=== PATIENT | female | born 2000 | race Caucasian/White ===

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

== ENCOUNTER → 2021-01-22 12:57 | Outpatient (CLI) | payer OTHER, SELFPAY ==
[2020-11-01 08:10] VITALS: BMI 40.1
[2021-01-22] MEDS: Methacholine Chloride 18 ml neb kit INHALATION (13:20)
--- NOTE | 2021-01-24 10:05 | BRONCHALL ---
Bronchoprovocation Challenge Bronchoprovocation Challenge Bronchoprovocation Challenge: INTRODUCTION: The patient is a 20-year-old female that presents for a methacholine challenge secondary to a diagnosis of shortness of breath. Respiratory therapy reported good patient effort and reproducible results. INTERPRETATION: Initial spirometry did not show any large airways obstructive ventilatory defect and preserved airflows throughout. The patient was then given progressively increasing doses of methacholine in a standardized fashion. At no point during testing did the patient's FEV1 drop to the threshold criteria that would be considered a positive test. IMPRESSION: Negative methacholine challenge.
== END ==
PROVIDERS: PCP Registered Nurse; Referring Provider Nurse Practitioner Acute Care; Visit Provider Nurse Practitioner Acute Care
DX: R06.00 Dyspnea, unspecified (principal)
CPT/HCPCS: 94070; 95070

== ENCOUNTER → 2021-02-14 20:00 | Outpatient (CLI) | payer OTHER, SELFPAY | PROVIDERS: PCP Registered Nurse; Visit Provider Internal Medicine Critical Care Medicine | DX: G47.10 Hypersomnia, unspecified (principal); R06.00 Dyspnea, unspecified; E66.01 Morbid (severe) obesity due to excess calories | CPT/HCPCS: 95810 ==

== ENCOUNTER 2021-05-27 07:46 | Observation (INO) | payer OTHER, SELFPAY ==
[2021-05-27 07:47] VITALS: BP 140/100; PULSE 122; RESP 18; TEMP 36.4; O2SAT 95; BMI 34.3
[2021-05-27] MEDS: Ondansetron 4 MG/2 ML Vial IV ×4 (08:12→21:55)
--- NOTE | 2021-05-27 08:17 | EDS_ITS ---
HPI History of Present Illness Chief Complaint: Nausea/Vomiting Informant: patient Narrative Narrative: 21-year-old female at 16 weeks gestation states that she is having severe morning sickness. Patient states that since about 7 weeks gestation this is been a regular occurrence. She states that her ELECTRICAL RESEARCH ENGINEER is in [place]. She states that [facility] does not do anything for her but give her IVs of medicine. She states that her ELECTRICAL RESEARCH ENGINEER states that she is not over morning sickness by 20 weeks they would look into other options. Patient states that she is currently being treated for UTI. She states that nothing seems to help her morning sickness. PFSH PFSH Medical History no medical history Home Medications albuterol sulfate 90 mcg/actuation aerosol inhaler 2 puff INHALATION Q6H PRN 10/02/20 [History Last Taken Unknown] Allergy/AdvReac Type Severity Reaction Status Date / Time No Known Allergies Allergy Verified 01/03/21 10:38 Surgical History no surgical history Social History (Updated 05/27/21 @ 08:[address] Bill Green, DO) current gender identity: female Smoking Status: Never smoker ROS ROS ED Constitutional Constitutional ED: Denies chills, fever(s) or weight loss Eyes Eyes: Denies change in vision or diplopia ENT ENT ED: Reports rhinorrhea and sore throat; Denies ear pain Cardiovascular Cardiovascular: Denies chest pain, orthopnea, palpitations or racing heartbeat Respiratory/Chest Respiratory/Chest: Reports cough; Denies dyspnea or orthopnea Gastrointestinal Gastrointestinal: Reports constipation, nausea and vomiting; Denies abdominal pain or diarrhea Genitourinary Genitourinary ED: Denies dysuria, hematuria or urinary frequency Musculoskeletal Musculoskeletal: Denies arthralgias or myalgias Integumentary Denies abscess or rash Neurologic Neurologic: Denies headache(s) or weakness Psychiatric Psychiatric: Denies anxiety, depression, suicidal ideation or suicidal thoughts Endocrine Endocrinology: Denies polydipsia, polyphagia or polyuria Allergic/Immunologic Allergic/Immunologic ED: Denies mouth swelling, tongue swelling or urticaria EXAM Physical Exam Const Vital Signs: 05/27/21 07:47 05/27/21 11:03 Temperature 97.5 F L Temperature Source Temporal Pulse Rate 122 H 108 H Respiratory Rate 18 16 Blood Pressure 140/100 H 142/118 H Blood Pressure Mean 113 126 Pulse Ox 95 98 Oxygen Delivery Method Room Air Room Air Positive well nourished, well developed and obese General Appearance ED: well developed Nutritional Appearance: obese HEENT Reports normocephalic, head/scalp atraumatic, TM's clear and moist mucous membranes Negative for trauma Tympanic Membrane ED: Yes TM's clear Eyes PERRL and EOMs intact bilaterally Neck no lymphadenopathy, supple and no JVD Resp normal respiratory effort and clear to auscultation bilaterally Cardio regular rate and no murmurs Rate: tachycardic GI normal to inspection, nondistended, normoactive bowel sounds and non-tender Palpation: soft Back/Spine no CVA tenderness and normal ROM Extremity normal to inspection General Extremety ED: Negative for edema General Extremity: Negative for edema Neuro oriented x3 and CN's II-XII intact bilaterally Sensorium / Orientation: alert Motor Exam: strength 5/5 throughout Psych mental status grossly normal Mood & Affect: Negative for depressed or tearful Skin no rashes or lesions noted and no wounds MDM MDM MDM Narrative Medical decision making narrative: White count nonspecifically elevated 11.2 with a hemoglobin of 16.4. Potassium low at 2.5. Magnesium 2.2. Elevation of transaminases with an ALT of 549 and AST of 158. Urinalysis demonstrates 25-50 white cells 1+ bacteria. This will be sent for culture the patient will receive a dose of Rocephin. Patient has received potassium IV, IV fluids, Reglan Zofran and Benadryl. After 6 hours the patient is still vomiting. Patient was discussed with Dr. Skelton whom the patient wishes to reduce with her ELECTRICAL RESEARCH ENGINEER. Dr. Skelton was agreeable to admit the patient. Lab Data Attestation: I reviewed the patient's lab results. Labs: Laboratory Results - last 24 hr 05/27/21 05/27/21 05/27/21 08:00 08:00 08:00 WBC 11.2 H RBC 5.72 H Hgb 16.4 H Hct 46.4 MCV 81.1 MCH 28.7 MCHC 35.3 RDW Std Deviation 35.0 L RDW Coeff of Neda 12.1 Plt Count 356 MPV 10.2 Immature Gran % (Auto) 0.400 Neut % (Auto) 84.1 H Lymph % (Auto) 9.4 L [place] % (Auto) 5.9 Eos % (Auto) 0.1 Baso % (Auto) 0.1 Absolute Neuts (auto) 9.4 H Absolute Lymphs (auto) 1.05 Nucleated RBC % 0 Sodium 135 L Potassium 2.5 L* Chloride 99 Carbon Dioxide 22.0 Anion Gap 14 BUN 9 Creatinine 0.80 Estim Creat Clear Calc 92.79 Est GFR (MDRD) Af Amer 118 Est GFR (MDRD) Non-Af 98 BUN/Creatinine Ratio 11.3 Glucose 137 H Calcium 10.1 Magnesium 2.2 Total Bilirubin 1.30 H AST 158 H ALT 549 H Alkaline Phosphatase 98 Total Protein 8.1 Albumin 3.4 Globulin 4.7 H Albumin/Globulin Ratio 0.7 L Urine Color Urine Clarity Urine pH Ur Specific [place] Urine Protein Urine Glucose (UA) Urine Ketones Urine Occult Blood Urine Nitrite Urine Bilirubin Urine Urobilinogen Ur Leukocyte Esterase Urine RBC Urine WBC Ur Squamous Epith Cells Other Crystals Urine Bacteria Urine Mucus 05/27/21 11:35 WBC RBC Hgb Hct MCV MCH MCHC RDW Std Deviation RDW Coeff of Neda Plt Count MPV Immature Gran % (Auto) Neut % (Auto) Lymph % (Auto) [place] % (Auto) Eos % (Auto) Baso % (Auto) Absolute Neuts (auto) Absolute Lymphs (auto) Nucleated RBC % Sodium Potassium Chloride Carbon Dioxide Anion Gap BUN Creatinine Estim Creat Clear Calc Est GFR (MDRD) Af Amer Est GFR (MDRD) Non-Af BUN/Creatinine Ratio Glucose Calcium Magnesium Total Bilirubin AST ALT Alkaline Phosphatase Total Protein Albumin Globulin Albumin/Globulin Ratio Urine Color Yellow Urine Clarity Sl. Cloudy Urine pH 6.5 Ur Specific [place] 1.015 Urine Protein 30 H Urine Glucose (UA) Normal Urine Ketones 150 A* Urine Occult Blood Negative Urine Nitrite Negative Urine Bilirubin 3 H Urine Urobilinogen 8 H Ur Leukocyte Esterase 500 H Urine RBC 0 SEEN Urine WBC 25-50 SEEN Ur Squamous Epith Cells 0-5 SEEN Other Crystals COMMEN Urine Bacteria 1+ Urine Mucus 0 SEEN EKG Initial EKG: Attestation: I personally reviewed and interpreted this EKG as follows: Comments: EKG demonstrates a sinus rhythm with PAC with a ventricular rate of 87 bpm. Discharge Plan Dx/Rx/DC Orders Clinical Impression: Hyperemesis gravidarum, Second trimester , Acute hypokalemia Disposition Disposition: Acute Care [facility]
[2021-05-27 08:29] LABS: Absolute Lymphocyte Count 1.05 X10^3/uL (0.83-4.51); Absolute Neutrophil Count 9.4 X10^3/uL (2.0-7.7); Basophil# 0.01 X10^3/uL; Basophil% 0.1 % (0-1); Eosinophil# 0.01 X10^3/uL; Eosinophils% 0.1 % (0-5); Hematocrit 46.4 % (37-47); Hemoglobin 16.4 g/dL (12.0-15.0); Lymphocyte # 1.05 X10^3/ul (0.83-4.51); Lymphocyte % 9.4 % (19-41); Mean Corp Hgb Conc 35.3 g/dL (32-36); Mean Corpuscular Hgb 28.7 pg (27.0-32.0); Mean Corpuscular Volume 81.1 fL (81-99); Mean Platelet Vol. 10.2 fl (6.2-12.0); Monocyte# 0.66 X10^3/uL; Monocyte% 5.9 % (0-10); NRBC Flagged by Analyzer 0 % (0-5); Neutrophil # 9.44 X10^3/uL (2.7-7.7); Neutrophil % 84.1 % (47-70); Platelet Count 356 K/mm3 (150-450); RBC Distribution Width CV 12.1 % (11.6-14.6); Red Blood Count 5.72 M/mm3 (4.2-5.4); White Blood Count 11.2 K/mm3 (4.4-11.0)
[2021-05-27] MEDS: Metoclopramide 10 MG/2 ML Vial IV (08:30)
[2021-05-27] MEDS: DiphenhydrAMINE 50 MG/ML Syringe IV (08:32)
[2021-05-27] MEDS: 0.9% Normal Saline 1,000 ML 1000 ML IV ×2 (08:33→12:18)
[2021-05-27 09:12] LABS: ALB/GLOB Ratio 0.7 RATIO (0.9-2.4); AST(SGOT) 158 U/L (15-37); Alanine Aminotransfer ALT/SGPT 549 U/L (13-56); Albumin, Serum 3.4 g/dL (3.2-5.0); Alkaline Phosphatase 98 U/L (45-117); Anion Gap 14 (5-15); BUN 9 mg/dL (7-18); BUN/Creat Ratio 11.3 RATIO (10-20); Calcium,Total 10.1 mg/dL (8.5-10.1); Chloride 99 mmol/L (98-107); EST Glomerular Filtration Rate 98 mL/min (>60); Est Glom Filt Rate - Afr Amer 118 mL/min (>60); Estimated Creatinine Clearance 92.79 ml/min; Globulin 4.7 g/dL (2.2-4.2); Glucose 137 mg/dL (74-106); Protein, Total 8.1 g/dL (6.4-8.2); Sodium Level 135 mmol/L (136-145)
[2021-05-27 09:15] LABS: Potassium 2.5 mmol/L (3.5-5.1)
--- NOTE | 2021-05-27 09:15 | ED.RN ---
lab called potassium level of 2.5. dr orta notified.
--- NOTE | 2021-05-27 09:30 | EKG12_ITS ---
Test Reason : Blood Pressure : / mmHG Vent. Rate : 087 BPM Atrial Rate : 087 BPM P-R Int : 136 ms QRS Dur : 096 ms QT Int : 382 ms P-R-T Axes : 036 073 000 degrees QTc Int : 459 ms Sinus rhythm with Premature supraventricular complexes T wave abnormality, consider inferior ischemia Abnormal ECG Confirmed by DONNA SCHAFER, LEILANI ([id number]), acquisition editor KESHAWN FIGUEROA ([id number]) on 05/29/2021 9:55:33 AM Referred By: JV Confirmed By:LEILANI THOMPSON MD
--- NOTE | 2021-05-27 09:35 | NURSING ---
NO OLD EKGS
[2021-05-27 10:07] LABS: Magnesium 2.2 mg/dL (1.6-2.6)
[2021-05-27] MEDS: Potassium Chloride 10mEq/100mL 10 MEQ/100 ML IV.SOLN. 100 MEQ IV BOLUS ×4 (10:14→17:38)
[2021-05-27 11:03] VITALS: BP 142/118; PULSE 108; RESP 16; O2SAT 98
[2021-05-27 11:42] LABS: Mucous, Urine 0 SEEN /hpf (<or=2+); Red Blood Cells-Urine 0 SEEN /hpf (0-5)
[2021-05-27 11:52] LABS: Color, Urine Yellow (Yellow); Glucose, Dipstick Normal (Normal); Leukocyte Esterase-Dipstick 500 /ul (Negative); Nitrite-Dipstick Negative (Negative); Occult Blood-Urine Negative /ul (Negative); Protein-Dipstick 30 mg/dl (Negative); Specific Gravity, Urine 1.015 (1.002-1.030); Urine Clarity Sl. Cloudy (Clear); Urine Urobilinogen 8 mg/dl (Normal); Urine pH 6.5 (5.0 - 8.0)
[2021-05-27 11:53] LABS: Urine Bilirubin Dipstick 3 mg/dL (Negative)
[2021-05-27 11:54] LABS: Ketone-Dipstick 150 mg/dl (Negative)
[2021-05-27 12:02] LABS: Bacteria 1+ /hpf (None Seen); Squamous Epithelial Cells - UA 0-5 SEEN /hpf (5-10); White Blood Cells 25-50 SEEN /hpf (0-5)
--- NOTE | 2021-05-27 14:18 | NURSING ---
MED SURG OBS MARCANTHONY HYPEREMESIS GRAVIDARUM
[2021-05-27 14:45] VITALS: BP 122/77; PULSE 97; RESP 20; TEMP 36.6; O2SAT 98
[2021-05-27 14:47] LABS: Hemoglobin A1c 5.1 % (3.8-5.6)
[2021-05-27] MEDS: Ceftriaxone 1 GM/50 ML BAG IV (14:49)
[2021-05-27 15:15] VITALS: BP 138/72; PULSE 95; RESP 18; TEMP 36.9; O2SAT 97; BMI 35.2
--- NOTE | 2021-05-27 15:15 | US_ITS ---
STUDY: ABDOMINAL ULTRASOUND - RIGHT UPPER QUADRANT REASON FOR VISIT: Female, 21 years old. Technologist Notes Other, ELEVATED LFT''S. HYPEREMESIS GRAVIDARIUM, PT IS 16 WEEKS , HAVE NOT BEEN ABLE TO KEEP ANYTHING DOWN WELL FOR 2 WEEKS. elevated lfts TECHNIQUE: Ultrasound evaluation of the right upper quadrant was performed with real-time and static george-scale imaging. TECHNICAL QUALITY: Adequate. COMPARISON: None. FINDINGS: Liver: There is increased echogenicity consistent with fatty infiltration. The bile ducts are within normal limits. There is hepatic color flow. The direction of portal flow is hepatopetal. There is no demonstrated mass lesion. Gallbladder: Normal distended gallbladder. The gallbladder wall measures 2.2 mm. There is a negative sonographic Bagley''s sign. There is no pericholecystic fluid. There is biliary sludge dependent within the gallbladder vs small gallstones. Common Bile Duct (C.B.D.): The common bile duct measures ( in mm): 4.6 Pancreas: Normal size of the head, body of the pancreas. There is normal echogenicity of the pancreas. There is no demonstrated pancreatic mass or cyst. Right Kidney: Normal size of the right kidney. The right kidney measures 11.4 cm. . Normal renal cortex. There is no demonstrated renal mass or cyst. There is no right hydronephrosis. Aorta: It is not visualized. There is too much overlying bowel gas. . US/Liver IMPRESSION: Fatty liver. There is biliary sludge dependent within the gallbladder vs small gallstones. Electronically Signed: Rodriguez Foley MD at 18:14 EST , Service support ,
--- NOTE | 2021-05-27 15:15 | US_ITS ---
STUDY: SECOND AND THIRD TRIMESTER OBSTETRICAL ULTRASOUND - LIMITED REASON FOR EXAM: Female, 21 years old. Other Info HYPEREMESIS GRAVIDARIUM early ob hyperemesis elevated liver enzymes PRIOR ULTRASOUND: None. TECHNIQUE: Transabdominal TECHNICAL QUALITY: Adequate. FINDINGS: There is a single intrauterine fetus. The fetus is in a cephalic presentation. There is demonstrated cardiac activity with a heart rate of 155 bpm. There is a normal amniotic fluid volume. The largest amniotic fluid pocket measures 3.1 cm. The placenta is posterior in location. There are Grade 0 placental changes. The cervix measures cm in length: 3. BIOMETRY: BPD: 39 mm: 18 weeks, 0 days HC: 143 mm: 17 weeks, 4 days AC: 114 mm: 17 weeks, 2 days FL: 21 mm: 16 weeks, 3 days CI: 81 FL/AC: 19 FL/BPD: 54 HC/AC: 1.26 age by current US: 17 weeks, 3 days. HELEN by current US: 6.4.22. Estimated weight: 173 grams, +/- 25 grams, 64 %. Age by LMP: 16 weeks, 4 days. HELEN by LMP: 6.10.22. US/OB Limited With Biometrics IMPRESSION: There is a single live intrauterine with a heart rate of 155 bpm. age by current US: 17 weeks, 3 days. HELEN by current US: 6.4.22. Estimated weight: 173 grams, +/- 25 grams, 64 %. Electronically Signed: Rodriguez Foley MD at 18:42 EST , Service support ,
[2021-05-27] MEDS: KCL 40mEq in 0.9% NS 40 MEQ/1,000 ML IV.SOLN 150 MEQ IV ×2 (15:47→22:29)
[2021-05-27] MEDS: proCHLORPERazine 10 MG/2 ML Vial IV (15:58)
[2021-05-27 15:59] LABS: Thyroid Stim Hormone (TSH) 0.17 uIU/mL (0.358-3.74)
--- NOTE | 2021-05-27 16:55 | PCM.HP.OB ---
HPI - General General Date of Admission: 05/27/21 HPI Tayler VALENZUELA, is a 21 F who presents with severe persistent nausea and vomiting, worsening over the last three weeks. she has been in an out of the ER in [place], saw an global mobility specialist there for initial care, had initial OB labs and NIPT that was low risk genetic boy. She states she can't tolerate rom pills, odt, or usppositories. she has had some cp and sob intermittent for a few weeks also. she has had weight loss of unclear amount and low potassium that has been replaced several times. Maternal Data Information HELEN Calculator Estimated Delivery Date Method Current WG Current Estimate 11/07/21 Manual 16w 4d per patient based on us in [facility] PFS Medical History no medical history Home Medications albuterol sulfate 90 mcg/actuation aerosol inhaler 2 puff INHALATION Q6H PRN 10/02/20 [History Last Taken Unknown] Allergy/AdvReac Type Severity Reaction Status Date / Time No Known Allergies Allergy Verified 01/03/21 10:38 Surgical History no surgical history Social History (Updated 05/27/21 @ 08:[address] Bill Green, DO) current gender identity: female Smoking Status: Never smoker ROS Review of Systems ROS Unobtainable: due to mental status and other Constitutional Constitutional: Reports systems reviewed and no addt'l complaints, except as documented; Denies as per HPI, fever(s) or other Eyes Eyes: Reports systems reviewed and no addt'l complaints, except as documented; Denies as per HPI, change in vision or other ENT HEENT: Reports systems reviewed and no addt'l complaints, except as documented Respiratory/Chest Respiratory/Chest: Reports systems reviewed and no addt'l complaints, except as documented Gastrointestinal Gastrointestinal: Reports systems reviewed and no addt'l complaints, except as documented and as per HPI Genitourinary Genitourinary: Reports as per HPI Musculoskeletal Musculoskeletal: Reports systems reviewed and no addt'l complaints, except as documented Neurologic Neurologic: Reports systems reviewed and no addt'l complaints, except as documented Psychiatric Psychiatric: Reports systems reviewed and no addt'l complaints, except as documented Endocrine Endocrinology: Reports systems reviewed and no addt'l complaints, except as documented Hematologic/Lymphatic Hematologic/Lymphatic: Reports systems reviewed and no addt'l complaints, except as documented Vital Signs Vital Signs Vital Signs: 05/27/21 07:47 05/27/21 11:03 05/27/21 14:45 Temperature 97.5 F L 98 F Temperature Source Temporal Temporal Pulse Rate 122 H 108 H 97 Respiratory Rate 18 16 20 H Blood Pressure 140/100 H 142/118 H 122/77 H Blood Pressure Mean 113 126 92 Blood Pressure Source Blood Pressure Position Blood Pressure Location Pulse Ox 95 98 98 Oxygen Delivery Method Room Air Room Air Room Air 05/27/21 15:15 Temperature 98.5 F Temperature Source Oral Pulse Rate 95 Respiratory Rate 18 Blood Pressure 138/72 H Blood Pressure Mean 94 Blood Pressure Source Monitor Blood Pressure Position Semi-Fowlers Blood Pressure Location Left Arm Pulse Ox 97 Oxygen Delivery Method Room Air Weight Weight: 198 lb 12.8 oz Body Mass Index (BMI) 35.2 Physical Exam Const alert, oriented x3 and no apparent distress HEENT normocephalic Head and Scalp: atraumatic Eyes EOMs intact bilaterally and conjunctivae normal Neck full ROM, no lymphadenopathy, supple and thyroid normal General: trachea midline Lymph Lymphatic: no lymphadenopathy noted Resp normal respiratory effort, no retractions, no use of accessory muscles and clear to auscultation bilaterally Cardio regular rhythm GI normal to inspection, nondistended, normoactive bowel sounds, soft to palpation, non-distended and no masses Inspection: Negative for abdominal distention Back/Spine no CVA tenderness Extremity normal to inspection Skin no rashes or lesions noted Neuro moves all extremities and deep tendon reflexes 2+ bilaterally Psych mental status grossly normal Labs Labs Labs: Hct 46.4 % (37-47) Hgb 16.4 g/dL (12.0-15.0) H Miscellaneous Test Pending Assessment & Plan (1) Hyperemesis gravidarum: COMMENT: failed oral, odt, and suppository agents, IV scheduled zofran and compazine, medrol dose pack. PRN reglan. transitional diet. (2) Second trimester : (3) Acute hypokalemia: COMMENT: IV replacement (4) Dyspnea: QUALIFIERS: Dyspnea type: dyspnea on exertion Qualified Code(s): R06.00 - Dyspnea, unspecified COMMENT: covid test sent (5) Elevated liver enzymes: COMMENT: hep panel ordered, RUQ ultrasound. recommend GI consult as outpatient due to hematemesis also. PLAN: Problem list updated and treatment plans were reviewed with the patient and relevant educational handouts given. See problem list details for specific plan information.
[2021-05-27 17:37] LABS: Amphetamine Urine VISTA NEGATIVE (<1000 ng/mL); Barbiturate Urine VISTA NEGATIVE (< 200 ng/mL); Benzodiazepine Urine VISTA NEGATIVE (< 200 ng/mL); Cocaine Urine VISTA NEGATIVE (< 300 ng/mL); Ecstacy Urine VISTA NEGATIVE (< 500 ng/mL); Methadone Urine VISTA NEGATIVE (< 300 ng/mL); PCP Urine VISTA NEGATIVE (< 25 ng/mL); THC Urine VISTA POSITIVE (< 50 ng/mL); Vista UDS pH Range 6
[2021-05-27 21:15] VITALS: BP 105/60; PULSE 92; RESP 18; TEMP 36.8; O2SAT 98
[2021-05-27] MEDS: 0.9% Saline Lock 10 ML Syringe IV (21:55)
[2021-05-28] MEDS: proCHLORPERazine 10 MG/2 ML Vial IV ×3 (00:03→11:52)
[2021-05-28] MEDS: 0.9% Saline Lock 10 ML Syringe IV ×3 (00:04→06:09)
[2021-05-28] MEDS: Ondansetron 4 MG/2 ML Vial IV ×4 (02:37→16:43)
[2021-05-28 03:05] VITALS: BP 117/70; PULSE 92; RESP 18; TEMP 36.6; O2SAT 96
[2021-05-28] MEDS: KCL 40mEq in 0.9% NS 40 MEQ/1,000 ML IV.SOLN 150 MEQ IV ×2 (05:10→11:51)
[2021-05-28 07:08] LABS: Absolute Lymphocyte Count 1.14 X10^3/uL (0.83-4.51); Absolute Neutrophil Count 3.5 X10^3/uL (2.0-7.7); Basophil# 0.01 X10^3/uL; Basophil% 0.2 % (0-1); Eosinophil# 0.13 X10^3/uL; Eosinophils% 2.5 % (0-5); Hematocrit 33.1 % (37-47); Hemoglobin 11.3 g/dL (12.0-15.0); Lymphocyte # 1.14 X10^3/ul (0.83-4.51); Lymphocyte % 21.8 % (19-41); Mean Corp Hgb Conc 34.1 g/dL (32-36); Mean Corpuscular Hgb 28.8 pg (27.0-32.0); Mean Corpuscular Volume 84.2 fL (81-99); Monocyte# 0.42 X10^3/uL; NRBC Flagged by Analyzer 0 % (0-5); Neutrophil # 3.53 X10^3/uL (2.7-7.7); Neutrophil % 67.3 % (47-70); Platelet Count 196 K/mm3 (150-450); RBC Distribution Width CV 12.7 % (11.6-14.6); Red Blood Count 3.93 M/mm3 (4.2-5.4); White Blood Count 5.2 K/mm3 (4.4-11.0)
[2021-05-28 07:39] LABS: ALB/GLOB Ratio 0.7 RATIO (0.9-2.4); AST(SGOT) 137 U/L (15-37); Alanine Aminotransfer ALT/SGPT 391 U/L (13-56); Albumin, Serum 2.1 g/dL (3.2-5.0); Alkaline Phosphatase 64 U/L (45-117); Anion Gap 9 (5-15); BUN 2 mg/dL (7-18); Calcium,Total 7.7 mg/dL (8.5-10.1); Chloride 113 mmol/L (98-107); EST Glomerular Filtration Rate 214 mL/min (>60); Est Glom Filt Rate - Afr Amer 259 mL/min (>60); Estimated Creatinine Clearance 185.58 ml/min; Glucose 95 mg/dL (74-106); Potassium 2.9 mmol/L (3.5-5.1); Protein, Total 5.1 g/dL (6.4-8.2); Sodium Level 142 mmol/L (136-145); T4 Free Direct 1.44 ng/dL (0.76-1.46)
[2021-05-28 09:05] VITALS: BP 116/62; PULSE 91; RESP 16; TEMP 36.6; O2SAT 97
[2021-05-28] MEDS: dexAMETHasone 10 MG/ML Vial IV (10:51)
[2021-05-28] MEDS: Potassium Chloride 10mEq/100mL 10 MEQ/100 ML IV.SOLN. 100 MEQ IV BOLUS ×4 (10:51→14:34)
--- NOTE | 2021-05-28 11:53 | PCM.PN.OB ---
Objective Data Objective Data Vital Signs: Vital Signs Temp Pulse Resp BP Pulse Ox 97.9 F 91 16 116/62 97 05/28/21 09:05 05/28/21 09:05 05/28/21 09:05 05/28/21 09:05 05/28/21 09:05 Oxygen Delivery Method Room Air Weight: 198 lb 12.8 oz Body Mass Index (BMI) 35.2 Intake & Output: Intake and Output for Last 24 Hours 05/26/21 05/27/21 05/28/21 23:59 23:59 23:59 Intake Total 3133.33 / 3133.33 2099 Balance 3133.33 / 3133.33 2099 Medical Nutrition Assessment Dietitian: Malnutrition Criteria Met Start: 05/28/21 11:17 Freq: Status: Active Protocol: Document 05/28/21 11:17 [facility] (Rec: 05/28/21 11:18 [facility] [id number]) Nutrition Malnutrition Evidence of Malnutrition Exists Yes Malnutrition (severe): Chronic Evidenced By Suboptimal Energy Intake ( Severe),Weight Loss (Severe) Clinical Problem Chronic Disease or Condition Related Malnutrition Etiology severe chronic malnutrition r/ t inadequate energy intake with increased energy/ nutrient needs of Signs/Symptoms as evidenced by unintentional wt loss of 44# / 18.8% x 16 wks, estimated PO intake <75% of estimated nutrition needs > 3 months. Status Active Problem Recommendation Dietitian Recommendations/Changes transitional diet order appropriate. Have requested delivery of Ensure [place] for tolerance. Will request at additional meal trays if accepted. Lab / Micro Data Result Diagrams: 05/28/21 06:48 05/28/21 06:48 Labs: Laboratory Results - last 24 hr 05/27/21 08:00: Hemoglobin A1c 5.1 05/27/21 08:00: TSH 0.17 L 05/27/21 11:35: Urine Color Yellow, Urine Clarity Sl. Cloudy, Urine pH 6.5, Ur Specific [place] 1.015, Urine Protein 30 H, Urine Glucose (UA) Normal, Urine Ketones 150 A*, Urine Occult Blood Negative, Urine Nitrite Negative, Urine Bilirubin 3 H, Urine Urobilinogen 8 H, Ur Leukocyte Esterase 500 H, Urine RBC 0 SEEN, Urine WBC 25-50 SEEN, Ur Squamous Epith Cells 0-5 SEEN, Other Crystals COMMEN, Urine Bacteria 1+, Urine Mucus 0 SEEN 05/27/21 11:35: Urine Opiates Screen NEGATIVE, Urine Methadone Screen NEGATIVE, Ur Barbiturates Screen NEGATIVE, Ur Phencyclidine Scrn NEGATIVE, Ur Amphetamines Screen NEGATIVE, U Methamphetamin-MDMA NEGATIVE, U Benzodiazepines Scrn NEGATIVE, Urine Cocaine Screen NEGATIVE, U Cannabinoids Screen POSITIVE H, Ur Drug Screen Comment 05/28/21 06:48: Sodium 142, Potassium 2.9 L, Chloride 113 H, Carbon Dioxide 20.0 L, Anion Gap 9, BUN 2 L, Creatinine 0.40 L, Estim Creat Clear Calc 185.58, Est GFR (MDRD) Af Amer 259, Est GFR (MDRD) Non-Af 214, BUN/Creatinine Ratio 5.0 L, Glucose 95, Calcium 7.7 L, Total Bilirubin 0.90, AST 137 H, ALT 391 H, Alkaline Phosphatase 64, Total Protein 5.1 L, Albumin 2.1 L, Globulin 3.0, Albumin/Globulin Ratio 0.7 L, Free T4 1.44 05/28/21 06:48: WBC 5.2, RBC 3.93 L, Hgb 11.3 L, Hct 33.1 L, MCV 84.2, MCH 28.8, MCHC 34.1, RDW Std Deviation 38.0, RDW Coeff of Neda 12.7, Plt Count 196, MPV 10.0, Immature Gran % (Auto) 0.200, Neut % (Auto) 67.3, Lymph % (Auto) 21.8, [place] % (Auto) 8.0, Eos % (Auto) 2.5, Baso % (Auto) 0.2, Absolute Neuts (auto) 3.5, Absolute Lymphs (auto) 1.14, Nucleated RBC % 0 Micro: Microbiology 05/27/21 18:00 Nasal Secretion SARS-CoV-2 Antigen (Rapid) - Final Radiography Diagnostic Testing: Radiology Impression Liver Ultrasound 05/27/21 15:15 IMPRESSION: Fatty liver. There is biliary sludge dependent within the gallbladder vs small gallstones. Electronically Signed: Rodriguez Foley MD at 18:14 EST , Service support , Obstetrics Ultrasound 05/27/21 15:15 IMPRESSION: There is a single live intrauterine with a heart rate of 155 bpm. age by current US: 17 weeks, 3 days. HELEN by current US: 6.4.22. Estimated weight: 173 grams, +/- 25 grams, 64 %. Electronically Signed: Rodriguez oFley MD at 18:42 EST , Service support , ROS Constitutional Constitutional: Reports systems reviewed and no addt'l complaints, except as documented Cardiovascular Cardiovascular: Reports as per HPI Respiratory/Chest Respiratory/Chest: Reports as per HPI Gastrointestinal Gastrointestinal: Reports as per HPI Genitourinary Genitourinary: Reports systems reviewed and no addt'l complaints, except as documented Physical Exam Const alert, oriented x3 and no apparent distress General Appearance: cooperative, comfortable and well developed HEENT normocephalic Head and Scalp: normal to inspection and normocephalic Mouth: oral and palatal mucosa normal Resp normal respiratory effort Cardio regular rate and regular rhythm GI soft to palpation, non-tender and non-distended Assessment & Plan (1) Elevated liver enzymes: COMMENT: sec to hyperemesis or possible gall bladder disease, no leukocytosis or RUQ pain so no acute cholecystitis suspected. hep panel ordered, RUQ ultrasound reviewed plan OP gen surg consult for biliary sludge seen. (2) Hyperemesis gravidarum: COMMENT: failed oral, odt, and suppository agents, IV scheduled zofran and compazine, medrol dose pack. PRN reglan. transitional diet. improved po intake plan dc home fu OP IVFs and wednesday (3) Second trimester : (4) Acute hypokalemia: COMMENT: IV replacement. plan continued replacement as OP and discussed potassium rich diet. (5) Dyspnea: QUALIFIERS: Dyspnea type: dyspnea on exertion Qualified Code(s): R06.00 - Dyspnea, unspecified COMMENT: covid test sent PLAN: dc planning Charges/Coding Visit Charges OBSV E&M: 46151 Observation care discharge
--- NOTE | 2021-05-28 12:17 | PCM.DC ---
Discharge Instructions Diet Discharge Diet: No restrictions Activity Discharge Activity: Return to Normal Activity May resume sexual activity in: No Restrictions Follow Up Care Please Follow Up With: [facility] When: in office next week, outpatient IV fluids and wednesday Test Results: Test results from this visit will be discussed in further detail at your follow-up appointment, if applicable. Discharge Plan Admission Admit Date/Time: 05/27/21 14:10 Primary Reason for Your Visit: hyperemesis gravidarum Attending Provider: Jenn Skelton Primary Care Provider: Beatriz Lewis NP Discharge Orders/Prescriptions Prescriptions: New methylprednisolone [Medrol ([place])] 4 mg tablets,dose pack 4 mg PO DAILY Qty: 21 RF: 0 prochlorperazine maleate [Compazine] 10 mg tablet 10 mg PO Q6H 30 Days Qty: 120 RF: 6 ondansetron 4 mg tablet,disintegrating 4 mg PO Q6H 30 Days Qty: 120 RF: 4 Ensure Liquid 100 ml PO TID 30 Days Qty: 5688 RF: 6 No Action albuterol sulfate [ProAir HFA] 90 mcg/actuation HFA aerosol inhaler 2 puff inhalation Q6H PRNRF: 0 Referrals / Follow Up: Beatriz Lewis NP, ASTROPHYSICS TEACHER-C [Primary Care Provider] - Disposition Disposition (needs filled in before D/C Order can be placed): Home, Self Care
--- NOTE | 2021-05-28 14:25 | CASEMGMT ---
Social Work SW met with pt and introduced self and role of SW. Pt tested positive for cannabis. Pt denies alcohol use, tobacco use or drug use. Pt stating that she has had nausea and vomitting throughout entire and used cannabis one time for relief. Cannabis was ineffective and pt has not used it since. Education provided to pt regarding drug/alcohol use and . Pt accepting of information. No further needs at this time. YOSELIN Vasquez
[2021-05-28 14:37] VITALS: BP 122/62; PULSE 94; RESP 16; TEMP 36.7; O2SAT 95
[2021-05-28 16:55] LABS: Anion Gap 8 (5-15); BUN 2 mg/dL (7-18); BUN/Creat Ratio 4.2 RATIO (10-20); Calcium,Total 8.6 mg/dL (8.5-10.1); Chloride 110 mmol/L (98-107); Creatinine, Serum 0.47 mg/dL (0.55-1.02); EST Glomerular Filtration Rate 178 mL/min (>60); Est Glom Filt Rate - Afr Amer 215 mL/min (>60); Estimated Creatinine Clearance 157.94 ml/min; Glucose 111 mg/dL (74-106); Potassium 3.8 mmol/L (3.5-5.1); Sodium Level 139 mmol/L (136-145)
== END 2021-05-28 17:34 | disposition home or self-care (01) ==
LOC: ED 14:10 → MS2 14:48
PROVIDERS: Admitting Provider Obstetrics & Gynecology; Emergency Provider Emergency Medicine; PCP Registered Nurse; Visit Provider Obstetrics & Gynecology
DX: O21.1 Hyperemesis gravidarum with metabolic disturbance (principal); Z3A.17 17 weeks gestation of pregnancy; O23.42 Unspecified infection of urinary tract in pregnancy, second trimester; R06.09 Other forms of dyspnea
CPT/HCPCS: 36415; 76705; 76816; 80048; 80053; 80307; 81001; 83036; 83735; 84439; 84443; 85025; 87086; 87426; 93005; 96361; 96365; 96366; 96367; 96375; 96376; 97802; 99284; J7030; A4216; J2405

== ENCOUNTER → 2021-05-29 12:52 | Outpatient (CLI) | payer OTHER, SELFPAY ==
[2021-05-29 13:00] VITALS: BP 115/72; PULSE 108; RESP 16; TEMP 36.6; O2SAT 96; BMI 34.3
[2021-05-29] MEDS: Ondansetron 4 MG/2 ML Vial IV (14:03)
[2021-05-29] MEDS: proCHLORPERazine 10 MG/2 ML Vial IV (14:15)
[2021-05-29 14:33] LABS: ALB/GLOB Ratio 0.7 RATIO (0.9-2.4); AST(SGOT) 149 U/L (15-37); Alanine Aminotransfer ALT/SGPT 450 U/L (13-56); Albumin, Serum 2.6 g/dL (3.2-5.0); Alkaline Phosphatase 76 U/L (45-117); Anion Gap 8 (5-15); BUN 1 mg/dL (7-18); BUN/Creat Ratio 2.1 RATIO (10-20); Calcium,Total 8.9 mg/dL (8.5-10.1); Chloride 109 mmol/L (98-107); Creatinine, Serum 0.48 mg/dL (0.55-1.02); EST Glomerular Filtration Rate 174 mL/min (>60); Est Glom Filt Rate - Afr Amer 211 mL/min (>60); Estimated Creatinine Clearance 154.65 ml/min; Globulin 3.7 g/dL (2.2-4.2); Glucose 100 mg/dL (74-106); Protein, Total 6.3 g/dL (6.4-8.2); Sodium Level 140 mmol/L (136-145)
[2021-05-29] MEDS: Potassium Chloride 10mEq/100mL 10 MEQ/100 ML IV.SOLN. 100 MEQ IV BOLUS ×2 (15:47→16:48)
[2021-05-29 17:55] VITALS: BP 116/65; PULSE 97; O2SAT 97
== END ==
PROVIDERS: PCP Registered Nurse; Referring Provider Nurse Practitioner Women's Health; Visit Provider Nurse Practitioner Women's Health
DX: O21.0 Mild hyperemesis gravidarum (principal); Z3A.00 Weeks of gestation of pregnancy not specified
CPT/HCPCS: 96361 ×4; 96374; 96375; 80053; J7040; J7120; A4216; J2405

== ENCOUNTER 2021-06-02 09:30 | Outpatient (CLI) | payer BC, MEDICAID, SELFPAY ==
[2021-06-02 09:47] VITALS: BP 110/77; PULSE 116; RESP 16; TEMP 35.8; O2SAT 96
[2021-06-02] MEDS: 0.9% NaCl Peripheral Flush Adult/Peds IV (10:04)
[2021-06-02 10:36] LABS: ALB/GLOB Ratio 0.7 RATIO (0.9-2.4); AST(SGOT) 69 U/L (15-37); Alanine Aminotransfer ALT/SGPT 341 U/L (13-56); Albumin, Serum 2.5 g/dL (3.2-5.0); Alkaline Phosphatase 72 U/L (45-117); Anion Gap 10 (5-15); BUN 2 mg/dL (7-18); BUN/Creat Ratio 4.1 RATIO (10-20); Calcium,Total 8.8 mg/dL (8.5-10.1); Chloride 104 mmol/L (98-107); Creatinine, Serum 0.48 mg/dL (0.55-1.02); EST Glomerular Filtration Rate 173 mL/min (>60); Est Glom Filt Rate - Afr Amer 210 mL/min (>60); Globulin 3.7 g/dL (2.2-4.2); Glucose 101 mg/dL (74-106); Potassium 2.8 mmol/L (3.5-5.1); Protein, Total 6.2 g/dL (6.4-8.2); Sodium Level 138 mmol/L (136-145)
[2021-06-02] MEDS: Ondansetron 4 MG/2 ML Vial IV (10:52)
[2021-06-02] MEDS: proCHLORPERazine 10 MG/2 ML Vial IV (10:55)
[2021-06-02] MEDS: Potassium Chloride IVPB 40 MEQ 100 MEQ IV BOLUS (13:17)
[2021-06-02 14:42] VITALS: BP 129/64; PULSE 92; TEMP 35.9; O2SAT 98
--- NOTE | 2021-06-02 14:43 | NURSING ---
pt. refuses remaining k-riders today. she plans to return tomorrow to complete.
== END 2021-06-02 23:59 | disposition short-term general hospital (02) ==
PROVIDERS: PCP Registered Nurse; Referring Provider Nurse Practitioner Women's Health; Visit Provider Nurse Practitioner Women's Health
DX: O21.0 Mild hyperemesis gravidarum (principal); Z3A.00 Weeks of gestation of pregnancy not specified
CPT/HCPCS: 96365; 96366; 96375 ×2; 80053; J7050; J7120; A4216; J2405

== ENCOUNTER 2021-06-19 11:22 | Outpatient (CLI) | payer MEDICAID, SELFPAY ==
--- NOTE | 2021-06-19 11:31 | US_ITS ---
STUDY: SECOND AND THIRD TRIMESTER OBSTETRICAL ULTRASOUND - LIMITED REASON FOR EXAM: Female, 21 years old . Growth. LMP: 01/31/2021. PRIOR ULTRASOUND: Comparison is made with prior study 05/27/2021. TECHNIQUE: Transabdominal TECHNICAL QUALITY: Adequate. FINDINGS: There is a single intrauterine fetus. The fetus is in an lie with the head on the maternal left side. There is no demonstrated cardiac activity. There is a normal amniotic fluid volume. The placenta is posterior in location and is not low lying. There are Grade 0 placental changes. The cervix measures 3.5 cm in length. BIOMETRY: BPD: 3.34 cm: 16 weeks, 2 days HC: 12.42 cm: 60 weeks, 1 days AC: 11.84 cm: 17 weeks, 3 days FL: 2.13 cm: 16 weeks, 2 days Age by LMP: 19 weeks, 6 days. HELEN by LMP: 11/07/2021. age by prior US: 20 weeks, 0 days. HELEN by prior US: 11/06/2021. age by current US: 60 weeks, 3 days. HELEN by current US: 12/01/2021. Estimated weight: 174 grams, +/- 20 grams, US/OB Limited With Biometrics IMPRESSION: No cardiac activity is seen. Electronically Signed: Dio Subramanian MD at 12:51 EST , Service support ,
== END 2021-06-19 23:59 | disposition short-term general hospital (02) ==
PROVIDERS: PCP Registered Nurse; Visit Provider Obstetrics & Gynecology
DX: Z34.90 Encounter for supervision of normal pregnancy, unspecified, unspecified trimester (principal)
CPT/HCPCS: 76816

== ENCOUNTER 2021-06-20 06:55 | Inpatient (IN) | payer BC, MEDICAID, SELFPAY ==
[2021-06-20] VITALS (64 sets, daily range): BP systolic 97–137; BP diastolic 48–89; PULSE 61–110; TEMP 36.6–37.1; O2SAT 96–100; BMI 36.3
--- NOTE | 2021-06-20 07:44 | HP.PCM_ITS ---
HPI - General General Date of Admission: 06/20/21 HPI Tayler VALENZUELA, is a 21 who presents for IOL due to 19 week 6 day demise. The fetus is measuring 16 weeks as of ultrasound yesterday. The patient suffered with hyperemesis during her and was being followed for electrolyte imbalances and slightly elevated LFT's. She used cannabis throughout her to help self medicate when the prescribed medications did not help. PFSH Home Medications albuterol sulfate 90 mcg/actuation aerosol inhaler 2 puff INHALATION Q6H PRN 10/02/20 [History Last Taken Unknown] ondansetron 4 mg PO Q6H 30 Days #120 tab 05/28/21 [Rx Last Taken Unknown] prochlorperazine maleate [Compazine] 10 mg PO Q6H 30 Days #120 tab 05/28/21 [Rx Last Taken Unknown] docosahexaenoic acid 200 mg capsule mg PO 06/02/21 [History Last Taken Unknown] food supplemt, lactose-reduced 0.06 gram-0.8 kcal/mL oral liquid 237 ml PO TID #1422 ml 06/02/21 [Rx Last Taken Unknown] Allergy/AdvReac Type Severity Reaction Status Date / Time No Known Allergies Allergy Verified 06/19/21 12:07 Family History Mother Hypertension Social History Smoking Status: Never smoker alcohol intake: never substance use type: does not use and other details: used 1 time to see if it would help with hyperemesis caffeine: No what type of physical activity do you participate in: none seatbelt use: always do you feel safe at home: Yes additional social history: Boyfriend- Jeovanny [place] Constitutional Constitutional: Denies change in weight, fatigue, fever(s), headache(s), poor appetite or weakness Eyes Eyes: Denies blurry vision, change in vision, seeing flashes or spots in vision ENT HEENT: Denies dizziness, headache(s), loss taste/smell or sore throat Cardiovascular Cardiovascular: Denies chest pain, dizziness, dyspnea, irregular heart rhythm, leg edema, palpitations, rapid heart rate or vomiting Respiratory/Chest Respiratory/Chest: Denies chest tightness, cough, dyspnea or breast pain Gastrointestinal Gastrointestinal: Denies abdominal pain, anorexia, constipation, cramping, diarrhea, hemorrhoids, vomiting or weight changes Genitourinary Genitourinary: Denies dysuria, flank pain, genital lesions, genital pain, urinary frequency or urinary urgency Musculoskeletal Musculoskeletal: Denies back pain, difficulty walking, joint pain, limited range of motion, muscle cramps or numbness Integumentary Integumentary: Denies lesions or unusual bruising Neurologic Neurologic: Denies abnormal movements, abnormal speech, dizziness, numbness, seizure-like activity or syncope Psychiatric Psychiatric: Denies anxiety, behavioral changes, change in appetite, change in libido, cognitive impairment, confusion, depression, difficulty concentrating, hallucinations or suicidal thoughts Endocrine Endocrinology: Denies excessive sweating, polydipsia or polyuria Hematologic/Lymphatic Hematologic/Lymphatic: Denies easy bleeding, easy bruising or lymphadenopathy Allergic/Immunologic Allergic/Immunologic: Denies itchy eyes, lip swelling, seasonal rhinorrhea, r hinitis, throat swelling, tongue swelling, eczemia, wheezing or asthma Vital Signs Vital Signs Vital Signs: 06/20/21 07:16 Temperature 98.2 F Pulse Rate 90 Blood Pressure 118/76 BP Systolic 118 BP Diastolic 76 Physical Exam Const alert, oriented x3, no apparent distress and healthy appearing General Appearance: cooperative; Negative for anxious HEENT normocephalic Face and Sinus: normal facial exam Eyes EOMs intact bilaterally and no scleral icterus General Eye: normal appearance of both eyes Neck full ROM and supple Lymph Lymphatic: no lymphadenopathy noted Chest Chest: abnormal inspection of the chest Resp normal respiratory effort Effort and Inspection: able to speak in complete sentences Cardio regular rate GI soft to palpation and non-tender Inspection: gravid Palpation: soft; Negative for tender external exam normal Amniotic Fluid: ROM+plus Back/Spine no CVA tenderness Extremity normal to inspection, full ROM and no clubbing, cyanosis or edema General Extremity: Negative for calf tenderness or edema Skin Lesions: no lesions Rashes: no rashes Psych mental status grossly normal Assessment & Plan Assessment/Plan (1) demise before 20 weeks with retention of fetus: PLAN: plan for 800mcg cytotec x 1, followed by 400mcg every 3 hrs. clear liquid diet APL, toxo, CMV, cmp, cbc, type and screen, urine tox, urine culture ordered plan for bereavement counseling during and after delivery. pt plans to told the fetus and wants an autopsy as well. She is also interested in genetic testing if possible with her insurance plan. (2) Supervision of high-risk : (3) : QUALIFIERS: Weeks of gestation: 17 weeks Qualified Code(s): Z3A.17 - 17 weeks gestation of (4) Elevated liver enzymes: (5) Hyperemesis gravidarum: (6) Acute hypokalemia:
[2021-06-20] MEDS: miSOPROStol 200 MCG Tablet 800 MCG VAGINAL (08:24)
[2021-06-20] MEDS: Lactated Ringers 1,000 ML 500 ML IV (09:10)
[2021-06-20] MEDS: Lactated Ringers 1,000 ML 125 ML IV ×2 (11:10→20:28)
[2021-06-20 11:15] LABS: Bacteria 0 SEEN /hpf (None Seen); Mucous, Urine 0 SEEN /hpf (<or=2+); Red Blood Cells-Urine 0 SEEN /hpf (0-5); White Blood Cells 0 SEEN /hpf (0-5)
[2021-06-20 11:16] LABS: Absolute Lymphocyte Count 1.46 X10^3/uL (0.83-4.51); Absolute Neutrophil Count 5.8 X10^3/uL (2.0-7.7); Basophil# 0.01 X10^3/uL; Basophil% 0.1 % (0-1); Eosinophil# 0.06 X10^3/uL; Eosinophils% 0.8 % (0-5); Hematocrit 36.1 % (37-47); Hemoglobin 12.2 g/dL (12.0-15.0); Lymphocyte # 1.46 X10^3/ul (0.83-4.51); Lymphocyte % 18.4 % (19-41); Mean Corp Hgb Conc 33.8 g/dL (32-36); Mean Corpuscular Volume 88.9 fL (81-99); Mean Platelet Vol. 9.7 fl (6.2-12.0); Monocyte# 0.54 X10^3/uL; Monocyte% 6.8 % (0-10); NRBC Flagged by Analyzer 0 % (0-5); Neutrophil # 5.83 X10^3/uL (2.7-7.7); Neutrophil % 73.3 % (47-70); Platelet Count 264 K/mm3 (150-450); RBC Distribution Width CV 13.6 % (11.6-14.6); RBC Distribution Width SD 43.5 fl (35.1-43.9); Red Blood Count 4.06 M/mm3 (4.2-5.4)
[2021-06-20 11:24] LABS: Color, Urine Yellow (Yellow); Glucose, Dipstick Normal (Normal); Ketone-Dipstick Negative (Negative); Leukocyte Esterase-Dipstick Negative /ul (Negative); Nitrite-Dipstick Negative (Negative); Occult Blood-Urine Negative /ul (Negative); Protein-Dipstick Negative (Negative); Urine Bilirubin Dipstick Negative (Negative); Urine Clarity Clear (Clear); Urine Urobilinogen Normal (Normal)
[2021-06-20 11:26] LABS: International Normalized Ratio 0.9; Prothrombin Time (Protime)PT. 11.6 SECONDS (11.7-14.9)
[2021-06-20 11:32] LABS: Fibrinogen 522 mg/dl (203-444)
[2021-06-20 11:33] LABS: Amphetamine Urine VISTA NEGATIVE (<1000 ng/mL); Barbiturate Urine VISTA NEGATIVE (< 200 ng/mL); Benzodiazepine Urine VISTA NEGATIVE (< 200 ng/mL); Cocaine Urine VISTA NEGATIVE (< 300 ng/mL); Ecstacy Urine VISTA NEGATIVE (< 500 ng/mL); Methadone Urine VISTA NEGATIVE (< 300 ng/mL); PCP Urine VISTA NEGATIVE (< 25 ng/mL); THC Urine VISTA POSITIVE (< 50 ng/mL); Vista UDS pH Range 6
[2021-06-20 11:37] LABS: Squamous Epithelial Cells - UA 0-5 SEEN /hpf (5-10)
[2021-06-20 11:42] LABS: ALB/GLOB Ratio 0.6 RATIO (0.9-2.4); AST(SGOT) 17 U/L (15-37); Alanine Aminotransfer ALT/SGPT 30 U/L (13-56); Albumin, Serum 2.5 g/dL (3.2-5.0); Alkaline Phosphatase 58 U/L (45-117); Anion Gap 8 (5-15); BUN 6 mg/dL (7-18); BUN/Creat Ratio 14.2 RATIO (10-20); Calcium,Total 8.7 mg/dL (8.5-10.1); Chloride 107 mmol/L (98-107); Creatinine, Serum 0.42 mg/dL (0.55-1.02); EST Glomerular Filtration Rate 203 mL/min (>60); Est Glom Filt Rate - Afr Amer 245 mL/min (>60); Glucose 91 mg/dL (74-106); Potassium 3.9 mmol/L (3.5-5.1); Protein, Total 6.5 g/dL (6.4-8.2); Sodium Level 137 mmol/L (136-145)
[2021-06-20] MEDS: fentaNYL 100 MCG/2 ML Ampul IV (12:27)
[2021-06-20] MEDS: miSOPROStol 200 MCG Tablet 400 MCG VAGINAL ×3 (12:31→20:32)
[2021-06-20] MEDS: proCHLORPERazine 10 MG/2 ML Vial IV (12:35)
[2021-06-20] MEDS: Lactated Ringers 500 ML 999 ML IV (14:40)
[2021-06-20] MEDS: fentaNYL-bupivacaine (epidural) 100 ML BAG EPIDURAL ×2 (14:59→19:43)
--- NOTE | 2021-06-20 18:56 | NURSING ---
Gestational age at discovery of is 19.6
--- NOTE | 2021-06-20 22:42 | PLAC_PTH ---
PATIENT: CYRUS VALENZUELA LOC: [facility] U#:[id number] AGE/SX: 21/F ROOM: WP021 RE06/20/[address]: Dr. Cammie Lemus DO : 2000 BED: 1 DIS: 06/21/2021 SPEC #: [id number] RECD: 06/23/21 08:39 STATUS: BRICE JHONNY #: [id number] CURTIS: 06/20/21 22:[address]: Cammie Lemus DEPT: SURGICAL PATHOLOGY RECD BY: Courtney Friedman ENTERED: 06/23/21 09:45 SP TYPE: PLACENTA OTHR DR: Beatriz Lewis, [place] Tissues: Placenta, NOS Procedures: Surgery Specimen Level V HEADER OPERATION: Vaginal delivery PRE-OP DIAGNOSIS: demise TISSUE SUBMITTED: Placenta (Anora) MICROSCOPIC DIAGNOSIS Christie placenta, 20-week gestation (77 gm): Umbilical cord ? trivascular with no evidence of inflammation. Placental membranes ? microcalcifications. Placental disc ? immature hyalinized villi with hypovascularization, Johanna-Thanh change, increased microcalcifications and mild chronic deciduitis. AM:abraham 06/25/2021 COMMENT A section of placental tissue is submitted for Anora studies. Case has been reviewed in consultation with Dr. Martínez who concurs with the above diagnosis. IDC:[email or web address] MICROSCOPIC DESCRIPTION Slides are reviewed. GROSS DESCRIPTION SPECIMEN: PLACENTA / CLINICAL INFORMATION: A. Weight: Not noted B. Gestational Age: 20 weeks C. Sex: Male PLACENTAL WEIGHT (POST FIXATION): 77 gm PLACENTAL DIMENSIONS: 10 x 7 x 1 cm PLACENTAL SHAPE: Usual ovoid. The body of the placenta is disrupted. PLACENTAL WEIGHT FOR GESTATIONAL AGE: Within 10-99th percentile MEMBRANES - Present A. Insertion: Marginal B. Site of rupture from edge: The membranes are fragmented and distance of rupture cannot be assessed. C. Color of membrane: Mendez-george D. Abnormalities: None UMBILICAL CORD - Present A. Color: Mendez-george B. Insertion: Central C. Length: 15 cm D. Diameter: Up to 0.5 cm E. Number of vessels: Three F. Abnormalities: The umbilical cord appears to be macerated. A clamp is also noted close to end. PLACENTAL DISC - Present A. Color of surface: Mendez-george B. surface abnormalities: None C. Maternal cotyledons: Maternal surface does not show any cotyledons. D. Attached retro placental clot: No clot E. Cut surface: Dark red and spongy F. Lesions: None G. Separate clot: Also present in the container are multiple blood clots weighing in aggregate 14 gm and measuring in aggregate 7 x 4 x 1.5 cm. SECTIONS SUBMITTED: 1. Membrane roll 2. Cord, maternal end 3. Cord, end 4. Placental disc, and maternal surfaces 5. Placental disc, and maternal surfaces 6. Placental disc, and maternal surfaces SJ:abraham 06/24/2021 TC:3 CPT: 33343
[2021-06-20] MEDS: Oxytocin 30 units/NS 500 ml 30 UNITS/500 ML IV.SOLN 334 UNITS IV (22:45)
--- NOTE | 2021-06-20 23:03 | OP.PCM_ITS ---
Maternal Data Information HELEN Calculator Estimated Delivery Date Method Current Current Estimate 11/07/21 Manual 20w 0d per patient based on us in stamps Vaginal Delivery Maternal Presentation Maternal Presentation: Medically Indicated Induction Maternal Presentation: demise Type of Induction: Cytotec Operative Information Date of Procedure: 06/20/21 Pre-Operative Diagnosis: @ 19 weeks 6 days, demise Post-Operative Diagnosis: @ 19 weeks 6 days, demise Estimated Blood Loss: 50cc Findings Description of Procedure: Patient was brought to labor and delivery for induction of labor after was noted to have a 19-week 6-day demise measuring 16 weeks gestation. Cytotec 800 mcg was inserted into the vagina at approximately 8 AM followed by 400 mcg every 4 hours x 3. After the last dose the cervix was noted to be 4 cm and a bulging bag in the vagina containing the fetus. With sterile technique a gloved hand was reached into the vagina and the in the bag was ruptured spontaneously the fetus was then delivered spontaneously in the breech presentation. The cord was clamped and cut and the infant was examined and noted to have normal appearing eyes mouth nose neck chest external genitalia limbs and back. 10 fingers and 10 toes were noted. There was noted however to be amniotic fluid tinged with meconium upon delivery. The placenta also delivered spontaneously and was contained within the vagina this was easily extracted from the vagina. A bedside ultrasound was performed showing an end ometrial stripe of 1.5 cm and no placental parts left behind. There were no lacerations and bleeding was minimal. Patient tolerated the procedure well sponge and lap counts were correct. Presentation: Complete Breech Amniotic Membrane Rupture Type: Artificial Amniotic Fluid Description: Moderate meconium Placental Delivery Description: Expressed Placenta Disposition: Sent to Pathology Specimen(s) Removed: Placenta and is advised fetus measuring 16 weeks size Cord Entanglement: None Infant A Gender: Male Post Vaginal Delivery Medications Given After Delivery: IV Pitocin Episiotomy Description: None Laceration: None Multi Select Codes Urinary/Genital Urinary/Genital CPT Codes: 71708 Vaginal Delivery+ Care([facility])
--- NOTE | 2021-06-20 23:10 | DCINST_ITS ---
Discharge Instructions Diet Discharge Diet: No restrictions Activity Discharge Activity: Return to Normal Activity, May Not Drive (while taking narcotic pain medications.) and May Shower May resume sexual activity in: 4-6 weeks Dressing / Incision Call your doctor if your incision/area has: Continuous Slow Oozing, Sudden Increased Bleeding, Increased Pain/ Swelling, Increased Redness and Foul Smelling Discharge Follow Up Care Please Follow Up With: Cammie Lemus, When: Call [phone] to make an appointment with your doctor in 6 weeks. If you had elevated blood pressure or 4th degree laceration, you will need to be seen in 2 weeks. Test Results: Test results from this visit will be discussed in further detail at your follow-up appointment, if applicable. Discharge Plan Admission Admit Date/Time: 06/20/21 06:55 Attending Provider: Cammie Lemus Primary Care Provider: Beatriz Lewis NP Instructions Patient Instructions: Loss Grieving Discharge Orders/Prescriptions Prescriptions: New ibuprofen 800 mg tablet 800 mg PO Q8H PRN (Reason: pain) 7 Days Qty: 30 RF: 0 Continued albuterol sulfate [ProAir HFA] 90 mcg/actuation HFA aerosol inhaler 2 puff inhalation Q6H PRN PRN (Reason: Shortness Of Breath Or Wheezing) RF: 0 DHA 200 mg capsule 1 mg PO DAILY RF: 0 prochlorperazine maleate [Compazine] 10 mg tablet 10 mg PO Q6H RF: 0 ondansetron 4 mg tablet,disintegrating 4 mg PO Q6H RF: 0 Referrals / Follow Up: Beatriz Lewis NP, [employer] [Primary Care Provider] - Disposition Disposition (needs filled in before D/C Order can be placed): Home, Self Care
--- NOTE | 2021-06-20 23:24 | NURSING ---
inserted by JOSE Meyer per other documentation
[2021-06-21] VITALS (13 sets, daily range): BP systolic 89–127; BP diastolic 54–71; PULSE 66–96; RESP 16–18; TEMP 36.4–37.1; O2SAT 95–98
[2021-06-21 08:34] LABS: Toxoplasma Gondii IgM < 3.0 AU/mL (0.0-7.9)
--- NOTE | 2021-06-21 11:12 | PN.OBGYN_ITS ---
Subjective Subjective Patient doing well without complaints. Tolerating PO. Ambulating and voiding without difficulty. Feeding well. Denies chest pain, shortness of breath, calf pain/swelling, fevers, chills, lightheadedness. Objective Data Objective Data Vital Signs: Vital Signs Temp Pulse Resp BP Pulse Ox 98.7 F 85 16 100/55 L 96 06/21/21 10:01 06/21/21 10:01 06/21/21 10:01 06/21/21 10:06/21/21 10:01 Oxygen Delivery Method Room Air Weight: 212 lb Body Mass Index (BMI) 36.3 Intake & Output: Intake and Output for Last 24 Hours 06/19/21 06/20/21 06/21/21 23:59 23:59 23:59 Intake Total 5198.42 / 5198.42 333 / 333 Output Total 550 / 550 800 / 800 Balance 4648.42 / 4648.42 -467 / -467 Lab / Micro Data Result Diagrams: 06/20/21 10:50 06/20/21 10:50 Labs: Laboratory Results - last 24 hr 06/20/21 10:50: WBC 8.0, RBC 4.06 L, Hgb 12.2, Hct 36.1 L, MCV 88.9, MCH 30.0, MCHC 33.8, RDW Std Deviation 43.5, RDW Coeff of Neda 13.6, Plt Count 264, MPV 9.7, Immature Gran % (Auto) 0.600, Neut % (Auto) 73.3 H, Lymph % (Auto) 18.4 L, [place] % (Auto) 6.8, Eos % (Auto) 0.8, Baso % (Auto) 0.1, Absolute Neuts (auto) 5.8, Absolute Lymphs (auto) 1.46, Nucleated RBC % 0 06/20/21 10:50: Blood Type AB POSITIVE, Antibody Screen NEGATIVE 06/20/21 10:50: PT 11.6 L, INR 0.9, APTT 27.0, Fibrinogen 522 H 06/20/21 10:50: Sodium 137, Potassium 3.9, Chloride 107, Carbon Dioxide 22.0, Anion Gap 8, BUN 6 L, Creatinine 0.42 L, Estim Creat Clear Calc 184.50, Est GFR (MDRD) Af Amer 245, Est GFR (MDRD) Non-Af 203, BUN/Creatinine Ratio 14.2, Glucose 91, Calcium 8.7, Total Bilirubin 0.20, AST 17, ALT 30, Alkaline Phosphatase 58, Total Protein 6.5, Albumin 2.5 L, Globulin 4.0, Albumin/Globulin Ratio 0.6 L 06/20/21 10:50: Urine Color Yellow, Urine Clarity Clear, Urine pH 7.0, Ur Specific [place] 1.010, Urine Protein Negative, Urine Glucose (UA) Normal, Urine Ketones Negative, Urine Occult Blood Negative, Urine Nitrite Negative, Urine Bilirubin Negative, Urine Urobilinogen Normal, Ur Leukocyte Esterase Negative, Urine RBC 0 SEEN, Urine WBC 0 SEEN, Ur Squamous Epith Cells 0-5 SEEN, Urine Bacteria 0 SEEN, Urine Mucus 0 SEEN 06/20/21 10:50: Anti-Cardiolipin IgG Ab Cancelled, Anti-Cardiolipin IgA Ab Cance lled, Anti-Cardiolipin IgM Ab Cancelled 06/20/21 10:50: Urine Opiates Screen NEGATIVE, Urine Methadone Screen NEGATIVE, Ur Barbiturates Screen NEGATIVE, Ur Phencyclidine Scrn NEGATIVE, Ur Amphetamines Screen NEGATIVE, U Methamphetamin-MDMA NEGATIVE, U Benzodiazepines Scrn NEGA TIVE, Urine Cocaine Screen NEGATIVE, U Cannabinoids Screen POSITIVE H, Ur Drug Screen Comment 06/20/21 10:50: Toxoplasma gondii IgM Cancelled, Toxoplasma Comment Cancelled 06/20/21 10:50: Toxoplasma IgG Ab Cancelled, Toxoplasma Comment Cancelled 06/20/21 10:50: Toxoplasma gondii IgM < 3.0, Toxoplasma Comment Comment ROS Constitutional Constitutional: Denies chills, fatigue, fever(s), poor appetite or weakness Eyes Eyes: Denies blurry vision, change in vision, seeing flashes or spots in vision ENT HEENT: Denies dizziness, headache(s), loss taste/smell or sore throat Cardiovascular Cardiovascular: Denies chest pain, dizziness, dyspnea, irregular heart rhythm, palpitations or rapid heart rate Respiratory/Chest Respiratory/Chest: Denies chest tightness, cough, dyspnea or breast pain Gastrointestinal Gastrointestinal: Denies abdominal pain, constipation or vomiting Genitourinary Genitourinary: Denies dysuria or flank pain Musculoskeletal Musculoskeletal: Denies difficulty walking, joint pain, limited range of motion or numbness Neurologic Neurologic: Denies abnormal movements, abnormal speech, dizziness, numbness, seizure-like activity or syncope Psychiatric Psychiatric: Denies anxiety, behavioral changes, change in appetite, confusion, depression or suicidal thoughts Physical Exam Const alert, oriented x3 and no apparent distress General Appearance: cooperative and comfortable Resp normal respiratory effort Cardio regular rate GI normal to inspection, nondistended, normoactive bowel sounds GI Narrative: uterus is firm below umbilicus Palpation: soft Bimanual Exam - Adnexa, Other: Negative for cul-de-sac fullness Back/Spine no CVA tenderness and thoraco-lumbar ROM normal Extremity normal to inspection, no clubbing, cyanosis or edema, no calf tenderness and no pedal edema Psych mental status grossly normal, thought process normal, cooperative, affect normal, speech normal, activity/motor behavior normal, denies homicidal ideation and denies suicidal ideation Assessment & Plan (1) demise before 20 weeks with retention of fetus: PLAN: s/p PPD # 1 vaginal delivery of demised 19 week 6 day fetus 1. routine post delivery care 2. emotional support given. patient declines antidepressants. will need to follow closely. 3. rh positive 4. rubella immune 5. dc to home today
--- NOTE | 2021-06-23 14:10 | CM.ED ---
SW Note Referral Source: [facility] Reason: Demise SW met with patient in her room. Patient said that she is doing ok. Patient said that she has positive family support. Patient said that she is wanting to go home today. SW advised of bereavement counseling through [facility]. SW provided emotional support. Plan: Emotional support provided Rosemary VU
[2021-06-23 20:21] LABS: Anti-Cardiolipin Ab, IgA, Qn < 9 APL U/mL (0-11); Anti-Cardiolipin Ab, IgG, Qn < 9 GPL U/mL (0-14); Anti-Cardiolipin Ab, IgM, Qn < 9 MPL U/mL (0-12); CMV Acute Antibody IgM < 30.0 AU/mL (0.0-29.9); CMV Antibody IgG < 0.60 U/mL (0.00-0.59); PARVOVIRUS B19 IGG 7.2 index (0.0-0.8); PARVOVIRUS B19 IGM 0.1 index (0.0-0.8); Toxoplasma Gondii IgG < 3.0 IU/mL (0.0-7.1)
[2021-06-26 10:09] LABS: Pathology Specimen OB SEE PATHOLOGY REPORT
== END 2021-06-21 12:45 | disposition home or self-care (01) | DRG 560 ==
PROVIDERS: Admitting Provider Obstetrics & Gynecology; PCP Registered Nurse; Referring Provider Obstetrics & Gynecology; Visit Provider Obstetrics & Gynecology
DX: O02.1 Missed abortion (principal); Z37.1 Single stillbirth; O99.324 Drug use complicating childbirth; F12.90 Cannabis use, unspecified, uncomplicated; O32.1XX0 Maternal care for breech presentation, not applicable or unspecified; O77.0 Labor and delivery complicated by meconium in amniotic fluid; O21.0 Mild hyperemesis gravidarum; Z3A.19 19 weeks gestation of pregnancy
CPT/HCPCS: 76815; 76816; 80053; 80307; 81001; 85025; 85384; 85460; 85610; 85730; 86147; 86644; 86645; 86747; 86777; 86778; 86850; 86900; 86901; 88307; 99218; J7120; G0378

== ENCOUNTER → 2021-11-06 | Outpatient (CLI) | payer BC, MEDICAID, SELFPAY ==
--- NOTE | 2021-11-06 15:03 | US_ITS ---
STUDY: ULTRASOUND OF THE FEMALE PELVIS - COMPLETE REASON FOR EXAM: Female, 21 years old. missed abortionOther Info PELVIC PAIN TECHNIQUE: Transabdominal COMPARISON: None. FINDINGS: The uterus is anteverted and is in a midline position. The uterus measures 6.5 x 4.4 cm. Normal uterine cervix. The endometrium measures 9.2 mm in thickness, and is heterogeneous (striated). There is no demonstrated endometrial mass. There is no demonstrated myometrial mass. I.U.D. - The patient does not have an I.U.D. The right ovary is visualized. The right ovary measures 3.4 cm. There is no right ovarian cyst or ovarian mass. There is no visualized right adnexal mass or complex lesion. There is normal arterial and normal venous vascularity. The left ovary is visualized. The left ovary measures 4 cm. There is no left ovarian cyst or ovarian mass. There is no visualized left adnexal mass or complex lesion. There is normal arterial and normal venous vascularity. There is no fluid in the cul-de-sac. Urinary bladder volume is 618cc. US/Transvaginal Non- IMPRESSION: The urinary bladder is distended. This can suggest urinary retention. Electronically Signed: Rodriguez Foley MD at 21:48 EDT ,
--- NOTE | 2021-11-06 15:03 | US_ITS ---
STUDY: ULTRASOUND OF THE FEMALE PELVIS - COMPLETE REASON FOR EXAM: Female, 21 years old. missed abortionOther Info PELVIC PAIN TECHNIQUE: Transabdominal COMPARISON: None. FINDINGS: The uterus is anteverted and is in a midline position. The uterus measures 6.5 x 4.4 cm. Normal uterine cervix. The endometrium measures 9.2 mm in thickness, and is heterogeneous (striated). There is no demonstrated endometrial mass. There is no demonstrated myometrial mass. I.U.D. - The patient does not have an I.U.D. The right ovary is visualized. The right ovary measures 3.4 cm. There is no right ovarian cyst or ovarian mass. There is no visualized right adnexal mass or complex lesion. There is normal arterial and normal venous vascularity. The left ovary is visualized. The left ovary measures 4 cm. There is no left ovarian cyst or ovarian mass. There is no visualized left adnexal mass or complex lesion. There is normal arterial and normal venous vascularity. There is no fluid in the cul-de-sac. Urinary bladder volume is 618cc. US/Pelvic (Non ) IMPRESSION: The urinary bladder is distended. This can suggest urinary retention. Electronically Signed: Rodriguez Foley MD at 21:48 EDT ,
== END | disposition home or self-care (01) ==
LOC: US 15:01
PROVIDERS: PCP Registered Nurse; Referring Provider Obstetrics & Gynecology; Visit Provider Obstetrics & Gynecology
DX: R10.2 Pelvic and perineal pain (principal)
CPT/HCPCS: 76830; 76856; 93976

== ENCOUNTER → 2021-11-07 | Outpatient (CLI) | payer BC, MEDICAID, SELFPAY ==
[2021-11-07 18:31] LABS: hCG Titer Quant., Serum < 1 mIU/mL (1-3)
== END | disposition home or self-care (01) ==
PROVIDERS: PCP Registered Nurse; Visit Provider Obstetrics & Gynecology
DX: O03.9 Complete or unspecified spontaneous abortion without complication (principal)
CPT/HCPCS: 36415; 84702

== ENCOUNTER → 2022-08-10 | Outpatient (CLI) | payer OTHER, SELFPAY ==
[2022-08-10 09:07] LABS: hCG Titer Quant., Serum 126 mIU/mL (1-3)
== END | disposition home or self-care (01) ==
PROVIDERS: PCP Registered Nurse; Referring Provider Obstetrics & Gynecology; Visit Provider Obstetrics & Gynecology
DX: N91.2 Amenorrhea, unspecified (principal)
CPT/HCPCS: 36415; 84702

== ENCOUNTER → 2022-08-12 | Outpatient (CLI) | payer OTHER, SELFPAY ==
[2022-08-12 08:59] LABS: hCG Titer Quant., Serum 395 mIU/mL (1-3)
== END | disposition home or self-care (01) ==
LOC: PAVLAB 08:10
PROVIDERS: PCP Registered Nurse; Referring Provider Nurse Practitioner Women's Health; Visit Provider Nurse Practitioner Women's Health
DX: N91.2 Amenorrhea, unspecified (principal)
CPT/HCPCS: 36415; 84702

== ENCOUNTER → 2022-08-18 | Outpatient (CLI) | payer OTHER, SELFPAY ==
--- NOTE | 2022-08-18 16:05 | US_ITS ---
STUDY: FIRST TRIMESTER OBSTETRICAL ULTRASOUND REASON FOR EXAM: Female, 22 years old viability/rule out ectopic LMP: TECHNIQUE: Transvaginal TECHNICAL QUALITY: Adequate. PRIOR ULTRASOUND: None. FINDINGS: There is visualization of a single gestational sac in a normal intrauterine position. The mean sac diameter (MSD) measures 0.73 cm, indicating an estimated gestational age (EGA) of 5 weeks, 3 days. The gestational sac shape is within normal limits. There is a visualized yolk sac. The yolk sac measures 0.25 cm. The placenta is non-visualized. pole is nonvisualized.. The estimated gestation age (EGA) by LMP is 6 weeks, 1 days. The estimated date of delivery (HELEN) by LMP is April 12, 2023. The estimated gestation age (EGA) by US is 5 weeks, 3 days. The estimated date of delivery (HELEN) by US is April 17, 2023. The uterus measures 5.9 x 4.8 x 4.1 cm. There is no demonstrated uterine fibroid. The cervix is closed. The right ovary measures 3.2 x 2 x 2.4 cm. There is no right ovarian cyst. There is no visualized right adnexal mass or complex lesion. The left ovary measures 6.2 x 3.5 x 3.2 cm. There is a cyst measuring 2.5 x 2.2 x 3.2 cm and a solid nodule measuring 1.4 x 1.6 x 2.2 cm There is minimal fluid in the cul de sac. US/Transvaginal w/Preg US IMPRESSION: Probable early intrauterine gestation without evidence for pole this time approximately 5 3 weeks gestational age. Small right ovarian cyst likely corpus luteum No definitive evidence for ectopic however would recommend clinical correlation and follow-up studies. Electronically Signed: Jarred Cazares MD at 17:15 EDT ,
[2022-08-18 16:20] LABS: hCG Titer Quant., Serum 5455 mIU/mL (1-3)
== END | disposition home or self-care (01) ==
LOC: US 16:05
PROVIDERS: PCP Registered Nurse; Referring Provider Obstetrics & Gynecology; Visit Provider Obstetrics & Gynecology
DX: N91.2 Amenorrhea, unspecified (principal)
CPT/HCPCS: 36415; 76817; 84702

== ENCOUNTER → 2022-08-26 | Outpatient (CLI) | payer OTHER, SELFPAY ==
--- NOTE | 2022-08-26 10:51 | US_ITS ---
EXAM: US , TRANSVAGINAL CLINICAL INDICATION: viability/dating -- 7-10 days TECHNIQUE: Real-time transvaginal obstetrical ultrasound of the maternal pelvis and a first trimester with image documentation. Transvaginal imaging was used for better evaluation of the fetus and adnexa. This report was created using [employer] report generation technology. COMPARISON: None. FINDINGS: GESTATION: There is an intrauterine gestational sac with a mean sac diameter of 1.5 cm age 6 weeks 2 days. There is a yolk sac present that measures 3 mm. There is a pole with a crown-rump length of 5 mm age 6 weeks 3 days. heart rate is 117 bpm. PLACENTA/AMNIOTIC FLUID: Cannot be adequately evaluated due to the early gestational age. UTERUS/CERVIX: Uterus 7.7 x 4.1 x 5.1 cm. No myometrial mass. OVARIES: The right ovary measures 1.7 x 2.3 x 1.8 cm. The left ovary measures 2.7 x 1.9 x 2.3 cm. No mass. FREE FLUID: No free fluid. US/Transvaginal w/Preg US IMPRESSION: Intrauterine gestation with an average ultrasound age of 6 weeks 3 days and ultrasound estimated due date of 04/18/2023. heart rate is 117 bpm. Electronically Signed: Maninder Jones MD at 18:10 EDT ,
== END | disposition home or self-care (01) ==
LOC: US 10:48
PROVIDERS: PCP Registered Nurse; Referring Provider Obstetrics & Gynecology; Visit Provider Obstetrics & Gynecology
DX: O36.80X0 Pregnancy with inconclusive fetal viability, not applicable or unspecified (principal)
CPT/HCPCS: 76817

== ENCOUNTER → 2022-09-16 | Outpatient (CLI) | payer OTHER, SELFPAY ==
[2022-09-16 11:06] LABS: Absolute Neutrophil Count 8.8 X10^3/uL (2.0-7.7); Basophil# 0.02 X10^3/uL; Basophil% 0.2 % (0-1); Eosinophil# 0.02 X10^3/uL; Eosinophils% 0.2 % (0-5); Hematocrit 40.7 % (37-47); Hemoglobin 14.3 g/dL (12.0-15.0); Lymphocyte % 9.7 % (19-41); Mean Corp Hgb Conc 35.1 g/dL (32-36); Mean Corpuscular Hgb 30.6 pg (27.0-32.0); Mean Corpuscular Volume 87.2 fL (81-99); Mean Platelet Vol. 9.4 fl (6.2-12.0); Monocyte# 0.48 X10^3/uL; Monocyte% 4.7 % (0-10); NRBC Flagged by Analyzer 0 % (0-5); Neutrophil # 8.76 X10^3/uL (2.7-7.7); Neutrophil % 84.9 % (47-70); Platelet Count 291 K/mm3 (150-450); RBC Distribution Width CV 11.5 % (11.6-14.6); RBC Distribution Width SD 36.6 fl (35.1-43.9); Red Blood Count 4.67 M/mm3 (4.2-5.4); White Blood Count 10.3 K/mm3 (4.4-11.0)
[2022-09-16] MEDS: Dextrose 5%-Lactated Ringers 1,000 ML 999 ML IV (11:13)
[2022-09-16] MEDS: Ondansetron 4 MG/2 ML Vial IV (11:18)
[2022-09-16 11:24] VITALS: BP 122/55; PULSE 82; RESP 16; O2SAT 100; BMI 37.9
[2022-09-16] MEDS: proMETHazine 25 MG/ML Syringe 12.5 MG IM (11:35)
[2022-09-16 12:02] LABS: Glucose Challenge Gest 1H 50g 117 mg/dL (70-140)
[2022-09-16 12:46] LABS: HIV - WCH Non-Reactive (Nonreactive); Hepatitis B Surface Antigen Non-Reactive (Nonreactive); Hepatitis C Antibody Non-Reactive (Nonreactive); Rubella IgG Reactive (Nonreactive); Syphilis Antibodies Non-reactive
[2022-09-16 12:51] VITALS: BP 134/64; PULSE 86; RESP 16; O2SAT 99
[2022-09-16 13:53] LABS: Amphetamine Urine VISTA NEGATIVE (<1000 ng/mL); Barbiturate Urine VISTA NEGATIVE (< 200 ng/mL); Benzodiazepine Urine VISTA NEGATIVE (< 200 ng/mL); Cocaine Urine VISTA NEGATIVE (< 300 ng/mL); Ecstacy Urine VISTA NEGATIVE (< 500 ng/mL); Methadone Urine VISTA NEGATIVE (< 300 ng/mL); PCP Urine VISTA NEGATIVE (< 25 ng/mL); THC Urine VISTA POSITIVE (< 50 ng/mL); Vista UDS pH Range 6
[2022-09-18 21:07] LABS: Chlamydia By Nucleic Acid AMP Negative (Negative); Gonococcus By Nucleic Acid AMP Negative (Negative)
[2022-09-24 20:33] LABS: HPV Reflexed? NOT INDICATED
== END | disposition home or self-care (01) ==
PROVIDERS: PCP Registered Nurse; Referring Provider Obstetrics & Gynecology; Visit Provider Obstetrics & Gynecology
DX: O99.283 Endocrine, nutritional and metabolic diseases complicating pregnancy, third trimester (principal); E86.0 Dehydration; O26.899 Other specified pregnancy related conditions, unspecified trimester; N89.8 Other specified noninflammatory disorders of vagina; Z3A.00 Weeks of gestation of pregnancy not specified
CPT/HCPCS: 96374; 96361; 36415; 80307; 82950; 85025; 86703; 86762; 86780; 86803; 86850; 86900; 86901; 87070; 87086; 87088; 87205; 87340; 87491; 87591; 88175; 96372; A4216; G0145; J2405

== ENCOUNTER 2022-09-28 08:22 | Emergency (ER) | payer OTHER, MEDICAID, SELFPAY ==
[2022-09-28 08:22] VITALS: BP 148/86; PULSE 67; RESP 18; TEMP 36; O2SAT 97; BMI 37.8
--- NOTE | 2022-09-28 08:40 | EX.ED.GENINJ ---
HPI History of Present Illness Chief Complaint: Nausea/Vomiting Narrative Narrative: 22-year-old female here for nausea vomiting. Patient states she is approximately 4 weeks and has been having nausea and vomiting for the past 4 days. States she cannot keep anything down. States symptoms are constant, severe. States she had a history of hyperemesis gravidarum last . States she is a with history of miscarriages in the past. She denies any vaginal bleeding, passage of tissue. Does note epigastric and crampy lower abdominal pain states is exacerbated by nausea and vomiting. She is concerned because today she developed hematemesis. PFSH PFSH Home Medications ondansetron 4 mg disintegrating tablet 4 mg PO Q6H PRN nausea and vomiting #30 tabs 08/06/22 [Rx Last Taken Unknown] multivit-min no.71-iron fum 28 mg-folate no.1 1 mg-dha 300 mg capsule ([employer]) 1 cap PO DAILY 09/15/22 [History Last Taken Unknown] metronidazole 0.75 % topical gel 1 applic topical QHS #45 grams 09/16/22 [Rx Last Taken Unknown] metoclopramide HCl 5 mg tablet (Reglan) 5 mg PO Q8H PRN PRN nausea and vomiting 7 days #20 tabs 09/28/22 [Rx Last Taken Unknown] Allergy/AdvReac Type Severity Reaction Status Date / Time No Known Allergies Allergy Verified 09/28/22 08:22 Family History Mother Hypertension Grandmother Colon cancer, Onset Age: 55 Paternal Grandmother Breast cancer Maternal Social History adopted: No household members: significant other housing: house current occupational status: employed 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 current occupational exposures/hazards: No (works at [employer]) pets and animals: Yes (dogs, lizard, snakes) pets and animals: dog(s) history of recent travel: No sexually active: Yes Smoking Status: Never smoker Electronic Cigarette Use: not used second hand exposure: Yes (Significant other vapes) counseling given: patient declined alcohol intake: never substance use type: does not use, former substance user Date of last use: Approx 4 weeks, marijuana and other details: used 1 time to see if it would help with hyperemesis well-balanced diet: daily or most days caffeine: Yes Type: carbonated beverages Number of servings: 1 eating out: rarely or never during the past year weight has: remained stable what type of physical activity do you participate in: none adry/taoist: None seatbelt use: always do you feel safe at home: Yes additional social history: Boyfriend- Jeovanny ROS ROS ED ROS Narrative Constitutional: Denies fever HEENT: Denies sore throat Neck: Denies neck pain Cardiovascular: Denies chest pain, syncope Respiratory: Denies shortness of breath GI: Endorses nausea and : Denies changes in urinary habits Musculoskeletal: Denies muscle or joint pain Neurologic: Denies numbness weakness or loss of sensation Skin denies rash EXAM Physical Exam Narrative Exam Narrative: Nursing triage notes reviewed, Vital signs reviewed Constitutional: please see mdm HENT: MMM Eyes: Pupils equal round and reactive to light, Extraocular muscles intact Neck: No stridor, no JVD, full neck ROM, no crepitus noted Lungs: Clear to auscultation, No wheezing or rales. No increased work of breathing, no conversational dyspnea, no accessory muscle use, no nasal flaring. No respiratory distress noted, no crepitus to chest Heart: Regular rate and rhythm, No murmurs, No rubs and No gallops, 2+ distal pulses (radial, femoral, posterior tibial) in all extremities Abdomen: Soft, there is no objective tenderness, no rigidity, rebound or guarding, no obvious peritoneal signs, no palpable pulsatile abdominal masses, no auscultated abdominal bruit : No CVAT Extremities: No edema Neuro: No focal neurological deficits, cranial nerves II through XII intact, 5/5 strength in all extremities. Intact sensation to light touch in all extremities, 2+ reflexes bilateral patella dens. Normal gait. No ataxia. Skin: No rash or lesions noted Const Vital Signs: 09/28/22 08:22 09/28/22 11:00 09/28/22 13:00 Temperature 96.8 F L Temperature Source Temporal Pulse Rate 67 76 78 Respiratory Rate 18 16 16 Blood Pressure 148/86 H 128/75 H 124/76 H Blood Pressure Mean 106 92 92 Pulse Ox 97 98 98 Oxygen Delivery Method Room Air Room Air MDM MDM MDM Narrative Medical decision making narrative: Chief Complaint: Nausea and vomiting External records reviewed: OB ultrasound from 08/26/2022 shows Intrauterine gestation with an average ultrasound age of 6 weeks 3 days and ultrasound estimated due date of 04/18/2023. heart rate is 117 bpm. ? MDM: The patient was hemodynamically stable, afebrile, nontoxic-appearing. Abdominal exam was benign not consistent with acute surgical intra-abdominal pathology. No symptomatology to suggest miscarriage I considered the following differential diagnosis: Hyperemesis gravidarum, nausea vomiting , intra-abdominal surgical pathology I considered obtaining a CT scan of the abdomen pelvis without this was not necessary given the benign nature of abdominal exam. In addition to this the risk of CT does malignancy and complication was high relative to the benefit of missed diagnosis. I obtain labs without significant dehydration, DOT, electrolyte abnormality. I gave the patient Phenergan, fluids. Labs remarkable for mild hypokalemia, no significant dehydration, anion gap or signs of loss with a uptrending beta-hCG. Tried Phenergan but initially patient remained nauseous had multiple episodes of nonbloody nonbilious vomitus in the emergency department. At this point I tried Reglan which improved the patient symptomatology. She is able tolerate p.o. He is appropriate discharge home. Repeat abdominal exam is benign Factors affecting care: 11 weeks OB Social determinants of health: Poor health literacy History obtained from others: Shared decision making: I will have a discussion with the patient and or visitors regarding risk/benefits of further testing or admission. They will be made aware of of the risk/benefits inherent in this decision they will be given the opportunity to voice understanding. Consults: None Lab Data Attestation: I reviewed the patient's lab results. Lab results narrative: CBC without leukocytosis, severe anemia, no thrombocytopenia. BMP with mild hypokalemia, no DOT, no elevated anion gap to suggest endorgan hypoperfusion Patient is a be positive there is no vaginal bleeding, no indication for RhoGAM Beta hCG quant appropriately uptrending from [id number] on 08/18/2022 to [id number] Labs: Laboratory Results - last 24 hr 09/28/22 09/28/22 09/28/22 09:10 09:15 09:15 WBC Cancelled Corrected WBC Cancelled RBC Cancelled Hgb Cancelled Hct Cancelled MCV Cancelled MCH Cancelled MCHC Cancelled RDW Std Deviation Cancelled RDW Coeff of Neda Cancelled Plt Count Cancelled MPV Cancelled Immature Gran % (Auto) Cancelled Neut % (Auto) Cancelled Lymph % (Auto) Cancelled [place] % (Auto) Cancelled Eos % (Auto) Cancelled Baso % (Auto) Cancelled Absolute Neuts (auto) Cancelled Absolute Lymphs (auto) Cancelled Total Counted Cancelled Neutrophils % (Manual) Cancelled Band Neutrophils % Cancelled Lymphocytes % (Manual) Cancelled Monocytes % (Manual) Cancelled Eosinophils % (Manual) Cancelled Basophils % (Manual) Cancelled Metamyelocytes % Cancelled Myelocytes % Cancelled Promyelocytes % Cancelled Blast Cells % Cancelled Plasma Cell % (Manual) Cancelled Other Cells % Cancelled Nucleated RBC % Cancelled Nucleated RBCs/100 WBC Cancelled Differential Comment Cancelled Diff Path Review Cancelled Hypersegmented Neuts Cancelled Atypical Lymphocytes Cancelled Reactive Lymphocytes Cancelled Smudge Cells Cancelled Toxic Granulation Cancelled Toxic Vacuolation Cancelled Dohle Bodies Cancelled Blanca Rods Cancelled Platelet Estimate Cancelled Plt Morphology Comment Cancelled RBC Morphology Cancelled Polychromasia Cancelled Hypochromasia Cancelled Poikilocytosis Cancelled Basophilic Stippling Cancelled Anisocytosis Cancelled Microcytosis Cancelled Macrocytosis Cancelled Spherocytes Cancelled Sickle Cells Cancelled Target Cells Cancelled Tear Drop Cells Cancelled Ovalocytes Cancelled Stomatocytes Cancelled [place] Bodies Cancelled [place] Cells Cancelled Bite Cells Cancelled Crenated Cell Cancelled Acanthocytes (Spur) Cancelled Rouleaux Cancelled Schistocytes Cancelled Sodium 138 Potassium 3.2 L Chloride 106 Carbon Dioxide 22.0 Anion Gap 10 BUN 8 Creatinine 0.64 Estim Creat Clear Calc 120.07 Est GFR (MDRD) Af Amer 151 Est GFR (MDRD) Non-Af 125 BUN/Creatinine Ratio 12.5 Glucose 113 H Calcium 9.3 Lipase 209 H HCG, Quant Urine Color Urine Clarity Urine pH Ur Specific [place] Urine Protein Urine Glucose (UA) Urine Ketones Urine Occult Blood Urine Nitrite Urine Bilirubin Urine Urobilinogen Ur Leukocyte Esterase Urine RBC Urine WBC Ur Squamous Epith Cells Urine Bacteria Urine Mucus Blood Type AB POSITIVE Antibody Screen NEGATIVE 09/28/22 09/28/22 09/28/22 09:15 10:02 10:02 WBC 11.0 Corrected WBC RBC 4.81 Hgb 14.4 Hct 42.9 MCV 89.2 MCH 29.9 MCHC 33.6 RDW Std Deviation 37.9 RDW Coeff of Neda 11.7 Plt Count 300 MPV 9.6 Immature Gran % (Auto) 0.400 Neut % (Auto) 89.7 H Lymph % (Auto) 6.3 L [place] % (Auto) 3.5 Eos % (Auto) 0.0 Baso % (Auto) 0.1 Absolute Neuts (auto) 9.8 H Absolute Lymphs (auto) 0.69 L Total Counted Neutrophils % (Manual) Band Neutrophils % Lymphocytes % (Manual) Monocytes % (Manual) Eosinophils % (Manual) Basophils % (Manual) Metamyelocytes % Myelocytes % Promyelocytes % Blast Cells % Plasma Cell % (Manual) Other Cells % Nucleated RBC % 0 Nucleated RBCs/100 WBC Differential Comment Diff Path Review Hypersegmented Neuts Atypical Lymphocytes Reactive Lymphocytes Smudge Cells Toxic Granulation Toxic Vacuolation Dohle Bodies Blanca Rods Platelet Estimate Plt Morphology Comment RBC Morphology Polychromasia Hypochromasia Poikilocytosis Basophilic Stippling Anisocytosis Microcytosis Macrocytosis Spherocytes Sickle Cells Target Cells Tear Drop Cells Ovalocytes Stomatocytes Gutierrez[place] Bodies [place] Cells Bite Cells Crenated Cell Acanthocytes (Spur) Rouleaux Schistocytes Sodium Potassium Chloride Carbon Dioxide Anion Gap BUN Creatinine Estim Creat Clear Calc Est GFR (MDRD) Af Amer Est GFR (MDRD) Non-Af BUN/Creatinine Ratio Glucose Calcium Lipase HCG, Quant 02540 H Urine Color Yellow Urine Clarity Sl. Cloudy Urine pH 6.5 Ur Specific [place] 1.020 Urine Protein 30 H Urine Glucose (UA) Normal Urine Ketones 150 A* Urine Occult Blood Negative Urine Nitrite Positive H Urine Bilirubin 1 H Urine Urobilinogen 8 H Ur Leukocyte Esterase 25 H Urine RBC 0 SEEN Urine WBC 0-5 SEEN Ur Squamous Epith Cells 0-5 SEEN Urine Bacteria 2+ Urine Mucus 2+ Blood Type Antibody Screen Discharge Plan Triage Chief Complaint: Nausea/Vomiting ED Provider: Mo Keene Dx/Rx/DC Orders Clinical Impression: Nausea and vomiting during Instructions: ED Vomiting (Adult) Prescriptions: New metoclopramide HCl [Reglan] 5 mg tablet 5 mg PO Q8H PRN PRN (Reason: nausea and vomiting) 7 Days Qty: 20 0RF No Action [employer] 28-1-300 mg capsule 1 cap PO DAILY metronidazole 0.75 % gel 1 applic topical QHS Qty: 45 0RF ondansetron 4 mg tablet,disintegrating 4 mg PO Q6H PRN (Reason: nausea and vomiting) Qty: 30 5RF Stand Alone Forms: ED Work / School Excuse Primary Care Provider: Beatriz Lewis NP Referrals: Beatriz Lewis NP, [facility] [Primary Care Provider] - Activity Restrictions/Additional Instructions: Thank you for trusting us with your care today! Please take Reglan as needed for nausea and vomiting. Please take your vitamins daily. Please return if you develop crampy lower abdominal pain, vaginal bleeding, passage of any tissue. Please return to the emergency department if your symptoms change or worsen. Please follow with your primary care physician, FACILITIES MANAGEMENT EXECUTIVE for further outpatient evaluation and management. Disposition Disposition: Home, Self Care
[2022-09-28 09:49] LABS: Anion Gap 10 (5-15); BUN 8 mg/dL (7-18); BUN/Creat Ratio 12.5 RATIO (10-20); Calcium,Total 9.3 mg/dL (8.5-10.1); Chloride 106 mmol/L (98-107); Creatinine, Serum 0.64 mg/dL (0.55-1.02); EST Glomerular Filtration Rate 125 mL/min (>60); Est Glom Filt Rate - Afr Amer 151 mL/min (>60); Estimated Creatinine Clearance 120.07 ml/min; Glucose 113 mg/dL (74-106); Lipase 209 U/L (13-75); Potassium 3.2 mmol/L (3.5-5.1); Sodium Level 138 mmol/L (136-145)
[2022-09-28 10:08] LABS: Absolute Lymphocyte Count 0.69 X10^3/uL (0.83-4.51); Absolute Neutrophil Count 9.8 X10^3/uL (2.0-7.7); Basophil# 0.01 X10^3/uL; Basophil% 0.1 % (0-1); Hematocrit 42.9 % (37-47); Hemoglobin 14.4 g/dL (12.0-15.0); Lymphocyte # 0.69 X10^3/ul (0.83-4.51); Lymphocyte % 6.3 % (19-41); Mean Corp Hgb Conc 33.6 g/dL (32-36); Mean Corpuscular Hgb 29.9 pg (27.0-32.0); Mean Corpuscular Volume 89.2 fL (81-99); Mean Platelet Vol. 9.6 fl (6.2-12.0); Monocyte# 0.38 X10^3/uL; Monocyte% 3.5 % (0-10); NRBC Flagged by Analyzer 0 % (0-5); Neutrophil # 9.84 X10^3/uL (2.7-7.7); Neutrophil % 89.7 % (47-70); Platelet Count 300 K/mm3 (150-450); RBC Distribution Width CV 11.7 % (11.6-14.6); RBC Distribution Width SD 37.9 fl (35.1-43.9); Red Blood Count 4.81 M/mm3 (4.2-5.4)
[2022-09-28 10:11] LABS: hCG Titer Quant., Serum 92201 mIU/mL (1-3)
[2022-09-28] MEDS: 0.9% Normal Saline 1,000 ML 999 ML IV (10:12)
[2022-09-28] MEDS: proMETHazine 25 MG/ML Syringe IM (10:12)
[2022-09-28 10:15] LABS: Red Blood Cells-Urine 0 SEEN /hpf (0-5)
[2022-09-28 10:37] LABS: Color, Urine Yellow (Yellow); Glucose, Dipstick Normal (Normal); Leukocyte Esterase-Dipstick 25 /ul (Negative); Nitrite-Dipstick Positive (Negative); Occult Blood-Urine Negative /ul (Negative); Protein-Dipstick 30 mg/dl (Negative); Urine Clarity Sl. Cloudy (Clear); Urine Urobilinogen 8 mg/dl (Normal); Urine pH 6.5 (5.0 - 8.0)
[2022-09-28 10:42] LABS: Ketone-Dipstick 150 mg/dl (Negative); Urine Bilirubin Dipstick 1 mg/dL (Negative)
[2022-09-28 10:46] LABS: Bacteria 2+ /hpf (None Seen); Mucous, Urine 2+ /hpf (<or=2+); Squamous Epithelial Cells - UA 0-5 SEEN /hpf (5-10); White Blood Cells 0-5 SEEN /hpf (0-5)
[2022-09-28 11:00] VITALS: BP 128/75; PULSE 76; RESP 16; O2SAT 98
[2022-09-28] MEDS: Metoclopramide 10 MG/2 ML Vial 5 MG IV (11:41)
[2022-09-28 13:00] VITALS: BP 124/76; PULSE 78; RESP 16; O2SAT 98
[2022-09-28 13:21] VITALS: BP 126/78; PULSE 78; RESP 16; TEMP 36.4; O2SAT 100
[2022-09-28] MEDS: Potassium Chloride Oral Tablet 20 MEQ PO (13:28)
== END 2022-09-28 13:34 | disposition home or self-care (01) ==
PROVIDERS: Emergency Provider Emergency Medicine; PCP Registered Nurse; Visit Provider Emergency Medicine
DX: O99.611 Diseases of the digestive system complicating pregnancy, first trimester (principal); K92.0 Hematemesis; R10.13 Epigastric pain; O99.281 Endocrine, nutritional and metabolic diseases complicating pregnancy, first trimester; E87.6 Hypokalemia; Z3A.01 Less than 8 weeks gestation of pregnancy
CPT/HCPCS: 80048; 81001; 83690; 84702; 85025; 86850; 86900; 86901; 96361; 96374; 99284; J7030; A4216

== ENCOUNTER → 2022-10-12 | Outpatient (CLI) | payer OTHER, MEDICAID, SELFPAY ==
[2022-10-12 11:45] LABS: NATERA MAILED SPECIMEN
== END | disposition home or self-care (01) ==
LOC: PAVLAB 10:40
PROVIDERS: PCP Registered Nurse; Referring Provider Obstetrics & Gynecology; Visit Provider Obstetrics & Gynecology
DX: Z34.81 Encounter for supervision of other normal pregnancy, first trimester (principal); Z31.430 Encounter of female for testing for genetic disease carrier status for procreative management
CPT/HCPCS: 36415

== ENCOUNTER → 2022-11-25 | Outpatient (CLI) | payer OTHER, MEDICAID, SELFPAY ==
--- NOTE | 2022-11-25 12:29 | US_ITS ---
STUDY: SECOND AND THIRD TRIMESTER OBSTETRICAL ULTRASOUND REASON FOR EXAM: Female, 22 years old anatomy LMP: July 10, 2022. TECHNIQUE: Transabdominal and Transvaginal TECHNICAL QUALITY: Adequate. PRIOR ULTRASOUND: Comparison is made with prior study dated August 26, 2022. FINDINGS: There is a single intrauterine fetus. The fetus is in a breech presentation. There is demonstrated cardiac activity with a heart rate of 147 bpm. There is a normal amniotic fluid volume. The largest amniotic fluid pocket measures 4.7 cm x 2.6 cm. The amniotic fluid index (ANGELIC) is within normal limits. The placenta is posterior in location and is not low lying. There are Grade 0 placental changes. The cervix measures 3.6 cm in length. The bilateral adnexal regions are normal. BIOMETRY: BPD: 4.07 cm: 18 weeks, 2 days HC: 15.78 cm: 18 weeks, 5 days AC: 13.63 cm: weeks, 1 days FL: 3.01 cm: 19 weeks, 2 days CI: 74% FL/BPD: 74% FL/HC: FL/AC: 22% HC/AC: 1.16 age by current US: 18 weeks, 5 days. HELEN by current US: April 23, 2023. Estimated weight: 273 grams, +/- 41 grams, 60 %. age by prior US: 19 weeks, 3 days. HELEN by prior US: April 18, 2023. Age by LMP: 19 weeks, 5 days. HELEN by LMP: April 16, 2023. ANATOMY: Gender: Female Cranium: Normal lateral ventricles. Normal choroid plexus. Normal cerebellum. Normal cisterna magna. Normal face, nose and lips. Chest: Normal 4-chamber heart. Abdomen/Pelvis: Normal diaphragm. Normal stomach. Normal abdominal wall. Normal cord insertion. Normal 3 vessel cord. Normal kidneys. Normal bladder. Spine: Normal cervical spine. Normal thoracic spine. Normal lumbar spine. Normal sacrum. Extremities: Normal bilateral upper extremities. Normal bilateral lower extremities. US/OB Anatomy w/ Transvaginal IMPRESSION: Single live intrauterine gestation with a mean gestational age of 19 weeks and 3 days. The measurements obtained today of fall within normal expected range. Electronically Signed: Dio Subramanian MD at 15:39 EDT ,
== END | disposition home or self-care (01) ==
LOC: OPUS 12:27
PROVIDERS: PCP Registered Nurse; Visit Provider Advanced Practice Midwife
DX: Z34.90 Encounter for supervision of normal pregnancy, unspecified, unspecified trimester (principal); Z3A.16 16 weeks gestation of pregnancy
CPT/HCPCS: 76805; 76817

== ENCOUNTER 2022-12-12 14:30 | Outpatient (CLI) | payer OTHER, MEDICAID, SELFPAY ==
[2022-12-12 14:38] VITALS: BP 122/75; PULSE 83; TEMP 37.3
[2022-12-12 15:08] VITALS: BMI 34.2
[2022-12-12] MEDS: Lactated Ringers 1,000 ML 999 ML IV (15:20)
[2022-12-12] MEDS: Acetaminophen 500 MG Tablet 1000 MG PO (15:24)
--- NOTE | 2022-12-12 15:49 | OB.TRI.PN_ITS ---
Progress Notes Date of Service: 12/12/22 Progress Note: Patient presents for triage evaluation secondary to decreased movement FHT: 145 Moderate variability appropriate for gestational age [place]: No Contractions Assessment and plan: IV hydration, reassuring maternal and status patient discharged to home to follow-up in office at next appointment. See problem list details for additional plan information. Charges/Coding Multi Select Codes Urinary/Genital Urinary/Genital CPT Codes: 18149-29 non-stress test Interp Assessment & Plan (1) Nausea and vomiting: PLAN: IV 1000ml bolus LR today (2) Prior with demise: COMMENT: 19wks (3) Supervision of high-risk : COMMENT: , HELEN 04/16/23, NICOLE Up (4) : QUALIFIERS: Weeks of gestation: 21 weeks Qualified Code(s): Z3A.21 - 21 weeks gestation of COMMENT: discussed NIPT & Carrier testing neg. . normal anatomy
[2022-12-12 16:42] VITALS: TEMP 36.7
== END 2022-12-12 16:30 | disposition home or self-care (01) ==
LOC: WPOUT 14:44 → WP 14:44
PROVIDERS: PCP Registered Nurse; Visit Provider Advanced Practice Midwife
DX: O21.9 Vomiting of pregnancy, unspecified (principal); O36.8120 Decreased fetal movements, second trimester, not applicable or unspecified; O09.892 Supervision of other high risk pregnancies, second trimester; O26.22 Pregnancy care for patient with recurrent pregnancy loss, second trimester; Z3A.19 19 weeks gestation of pregnancy
CPT/HCPCS: 96360; 59050; 99221; J7120; G0378

== ENCOUNTER 2023-01-21 19:15 | Outpatient (CLI) | payer MEDICAID, SELFPAY ==
[2023-01-21 19:30] VITALS: PULSE 91; O2SAT 97
[2023-01-21 19:32] VITALS: BP 116/70; PULSE 86
[2023-01-21 19:35] VITALS: BP 116/70; PULSE 91; TEMP 35.9; O2SAT 97
[2023-01-21 19:42] VITALS: BMI 35.2
[2023-01-21 20:25] LABS: ROM Internal Control Test YES-OK TO RESULT pt. (Internal QC); ROM Patient Test Negative (Negative); Record Kit Lot#, ROM+ K1374
--- NOTE | 2023-01-29 07:39 | OB.TRI.PN ---
Progress Notes Date of Service: 01/21/23 Progress Note: Patient presents for triage evaluation secondary to threatened labor FHT: 140 Moderate variability reactive no decelerations category I tracing [place]: no regular Contractions Assessment and plan: threatened labor Reactive NST, reassuring maternal and status patient discharged to home to follow-up as scheduled. See problem list details for additional plan information. Laboratory Studies: Laboratory Tests 01/21/23 Range/Units Unknown Vag Amniotic Fld Detect Negative (Negative) Charges/Coding Procedures Urinary/Genital [id number]: 10347-88 non-stress test Interp
== END 2023-01-21 20:33 | disposition home or self-care (01) ==
LOC: WPOUT 19:19 → WP 19:20
PROVIDERS: PCP Registered Nurse; Visit Provider Obstetrics & Gynecology
DX: O47.9 False labor, unspecified (principal); Z3A.00 Weeks of gestation of pregnancy not specified
CPT/HCPCS: 59050; 84112

== ENCOUNTER → 2023-01-26 | Outpatient (CLI) | payer MEDICAID, SELFPAY ==
[2023-01-26 11:38] LABS: Absolute Lymphocyte Count 1.15 X10^3/uL (0.83-4.51); Absolute Neutrophil Count 7.5 X10^3/uL (2.0-7.7); Basophil# 0.01 X10^3/uL; Basophil% 0.1 % (0-1); Eosinophil# 0.12 X10^3/uL; Eosinophils% 1.3 % (0-5); Hematocrit 36.7 % (37-47); Hemoglobin 11.9 g/dL (12.0-15.0); Lymphocyte # 1.15 X10^3/ul (0.83-4.51); Lymphocyte % 12.7 % (19-41); Mean Corp Hgb Conc 32.4 g/dL (32-36); Mean Corpuscular Hgb 30.6 pg (27.0-32.0); Mean Corpuscular Volume 94.3 fL (81-99); Mean Platelet Vol. 9.6 fl (6.2-12.0); Monocyte# 0.24 X10^3/uL; Monocyte% 2.6 % (0-10); NRBC Flagged by Analyzer 0 % (0-5); Neutrophil % 82.9 % (47-70); Platelet Count 255 K/mm3 (150-450); RBC Distribution Width CV 12.9 % (11.6-14.6); RBC Distribution Width SD 44.2 fl (35.1-43.9); Red Blood Count 3.89 M/mm3 (4.2-5.4); White Blood Count 9.1 K/mm3 (4.4-11.0)
[2023-01-26 11:55] LABS: Glucose Challenge Gest 1H 50g 155 mg/dL (70-140)
[2023-01-26 12:30] LABS: HIV - WCH Non-Reactive (Nonreactive); Syphilis Antibodies Non-reactive
== END | disposition home or self-care (01) ==
LOC: PAVLAB 11:11
PROVIDERS: Obstetrics & Gynecology; PCP Registered Nurse; Referring Provider Obstetrics & Gynecology; Visit Provider Obstetrics & Gynecology
DX: O09.90 Supervision of high risk pregnancy, unspecified, unspecified trimester (principal); O99.320 Drug use complicating pregnancy, unspecified trimester; F12.90 Cannabis use, unspecified, uncomplicated; Z3A.28 28 weeks gestation of pregnancy; Z13.1 Encounter for screening for diabetes mellitus
CPT/HCPCS: 36415; 82950; 85025; 86703; 86780; 86850; 86900; 86901

== ENCOUNTER → 2023-02-19 | Outpatient (CLI) | payer MEDICAID, SELFPAY ==
--- NOTE | 2023-02-19 12:18 | US_ITS ---
STUDY: SECOND AND THIRD TRIMESTER OBSTETRICAL ULTRASOUND - LIMITED REASON FOR: Female, 22 years old, evaluate growth LMP: 07/10/2022. PRIOR ULTRASOUND: Prior studies dated: 11/25/2022. TECHNIQUE: Transabdominal TECHNICAL QUALITY: Adequate. FINDINGS: There is a single intrauterine fetus. The fetus is in a cephalic presentation. There is demonstrated cardiac activity with a heart rate of 162 bpm. There is a normal amniotic fluid volume. The largest amniotic fluid pocket measures 3.4 cm. The amniotic fluid index (ANGELIC) is 12 cm. The placenta is fundal in location. There are Grade 0 placental changes. The cervix measures 3.3 cm in length. BIOMETRY: BPD: 7.4 cm: 29 weeks, 6 days HC: 28 cm: 30 weeks, 5 days AC: 26.2 cm: 30 weeks, 3 days FL: 6.1 cm: 31 weeks, 4 days Age by LMP: 32 weeks, 0 days. HELEN by LMP: 04/16/2023. age by current US: 30 weeks, 4 days. HELEN by current US: 04/26/2023.. Estimated weight: 1633 grams, +/- 245 grams, 10.8 percentile. US/OB Limited With Biometrics IMPRESSION: Single live intrauterine fetus in cephalic presentation with an estimated gestational age of 30 weeks and 4 days. HELEN is 04/26/2023. Electronically Signed: Alber Mariano MD at 8:40 EDT ,
== END | disposition home or self-care (01) ==
LOC: OPUS 12:17
PROVIDERS: Referring Provider Advanced Practice Midwife; Visit Provider Advanced Practice Midwife
DX: O99.810 Abnormal glucose complicating pregnancy (principal); O09.299 Supervision of pregnancy with other poor reproductive or obstetric history, unspecified trimester; Z3A.00 Weeks of gestation of pregnancy not specified
CPT/HCPCS: 76816

== ENCOUNTER 2023-03-01 16:45 | Outpatient (CLI) | payer MEDICAID, SELFPAY ==
[2023-03-01 17:03] VITALS: PULSE 120; O2SAT 97
[2023-03-01 17:25] VITALS: BMI 34.7
--- NOTE | 2023-03-01 17:46 | OB.TRI.HP_ITS ---
HPI - General General Date of Admission: 03/01/23 Date of Service: 03/01/23 Chief Complaint: decreased movement HPI Narrative CYRUS VALENZUELA, is a 22 F who presents at 33+3 with decreased movement and questionable contractions. denies lof/vb. Maternal Data Information HELEN Calculator Estimated Delivery Date Method Current WG Current Estimate 04/16/23 LMP (Certain) 33w 3d Other Estimates 04/14/23 Ultrasound #2 33w 5d PFSH PFSH Medical History Abnormal glucose affecting Home Medications pediatric multivitamin no.49 (Flintstones Gummies chewable tablet) 2 tab PO QHS 12/12/22 [History Last Taken 01/29/23 07:00 2 tabs] blood sugar diagnostic (Blood Glucose Test strips) #120 ea 02/05/23 [Rx Last Taken Unknown] blood-glucose meter #1 ea 02/05/23 [Rx Last Taken Unknown] lancets #200 ea 02/05/23 [Rx Last Taken Unknown] promethazine 25 mg tablet 25 mg PO TID PRN nausea and vomiting #30 tabs 02/05/23 [Rx Last Taken 02/28/23 20:00 25 mg] ondansetron 4 mg disintegrating tablet 4 mg PO Q6H PRN nausea and vomiting #30 tabs 02/17/23 [Rx Last Taken 03/01/23 14:00 4 mg] Allergy/AdvReac Type Severity Reaction Status Date / Time No Known Allergies Allergy Verified 03/01/23 16:59 Family History Mother Hypertension Grandmother Colon cancer, Onset Age: 55 Paternal Grandmother Breast cancer Maternal Social History adopted: No household members: significant other housing: house current occupational status: employed 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 current occupational exposures/hazards: No (works at [employer]) pets and animals: Yes (dogs, lizard, snakes) pets and animals: dog(s) history of recent travel: No sexually active: Yes Smoking Status: Never smoker Electronic Cigarette Use: not used second hand exposure: Yes (Significant other vapes) counseling given: patient declined alcohol intake: never substance use type: does not use, former substance user Date of last use: Approx 4 weeks, marijuana and other details: used 1 time to see if it would help with hyperemesis well-balanced diet: daily or most days caffeine: Yes Type: carbonated beverages Number of servings: 1 eating out: rarely or never during the past year weight has: remained stable what type of physical activity do you participate in: none adry/congregation: None seatbelt use: always do you feel safe at home: Yes additional social history: Boyfriend- Jeovanny History 4 Elective abortions Hx Para 0 Spontaneous abortions 2 Hx # Term Pregnancies Ectopic pregnancies Hx # Pregnancies 1 Multiple births # of living children 0 Past Pregnancies Del. Date Name GA/Weeks Outcome Route Bth Weight Infant Gen Labor Lgth Anesthesia Del Locatn Provider FOB Unknown chemical 11/19 Unknown miscarriage at 17 yo. 06/20/21 Kyle 20 still [facility] Dr. Lemus Delivery Date: 06/20/21 Last Updated by: Maddie Rubio demise Visit Details Expected Delivery Route/Plan Labor Preferences- CB/BF classes: [] labor support person: [] labor intervention preferences: [] pain management options preferred: [] cut cord/dad catch: [] : [] PP control planned: [] discussed possible routes of delivery and associated risks: [] special requests: [] Plans Covid status: [] Flu vaccine: [] Tdap vaccine: [] Rhogam: [] LARC form signed: [] Problem list reviewed and updated with the most current plan of care details and appropriate orders placed. Relevant counseling for the gestational age provided. Continue routine care and follow up unless otherwise noted in visit notes/problem list details OB Flowsheet Initial Weight: Not Recorded Date -?-?-?-?-?-?-?-?-?-?-?-?- EGA Weight BP Urine Prot -?-?-?-?-?-?-?-?-?-?-?-?- Glucose FHR FuHt Pres Dilation -?-?-?-?-?-?-?-?-?-?-?-?- Effaced St Visit Note 09/16/22 -?-?-?-?-?-?-?-?-?-?-?-?- 9w 5d 221 lb 6 oz 131/74 -?-?-?-?-?-?-?-?-?-?-?-?- 180 -?-?-?-?-?-?-?--?-?-?-?-?- JV- CRL consiste nt w lmp, c/o vomiting x 3 days and not holding down fluids. will send to infusion center and start optum consult. desires nipt 10/12/22 -?-?--?-?-?-?-?-?-?-?-?-?- 13w 3d 208 lb 4 oz 124/80 1+ -?-?-?-?-?-?-?-?-?-?-?-?- Negative 150 -?-?-?-?-?-?-?-?-?-?-?-?- LC-bedside ultra sound demonstrating +FHR 150s. discussed afp. unsure. LC-bedside ultrasound demons trating +FHR 150s. discussed afp. unsure. vomiting 4-20x/day. cost prohibiting optimum at this time. will be calling medicaid as pt has dropped to 8 hours of work/week. able to drink water today, declines IV hydration. LC-bedside ultrasound demons trating +FHR 150s. discussed afp. unsure. vomiting 4-20x/day. today is feeling well.optimum is cost prohibiting at this time. will be calling medicaid as pt has dropped to 8 hours of work/week. able to drink water today, declines IV hydration. discussed when to call for rehydration 10/19/22 -?-?-?-?-?-?-?-?-?-?-?-?- 14w 3d 213 lb 4 oz 120/73 Trac e -?-?-?-?-?-?-?-?-?-?-?-?- Negative 150 -?-?-?-?-?-?-?-?-?-?-?-?- LC- bedside ultr asound to confirm FHR. was having cramping over the weekend, none today after hydrating. denies vb 11/04/22 -?-?-?-?-?-?-?-?-?-?-?-?- 16w 5d 207 lb 105/67 Negative -?-?-?-?-?-?-?-?-?-?-?-?- Negative 154 -?-?-?-?-?-?-?-?-?-?-?-?- kw- +FM, no cram ping/vb. US ordered. Discussed AFP- declines. 12/04/22 -?-?-?-?-?-?-?-?-?-?-?-?- 21w 0d 201 lb 6 oz 108/74 Trac e -?-?-?-?-?-?-?-?-?-?-?-?- Negative 145 21 -?-?-?-?-?-?-?-?-?-?-?-?- KW- +FM. no vb/l of/ctx. no concerns today 01/01/23 -?-?-?-?-?-?-?-?-?-?-?-?- 25w 0d 204 lb 8 oz 119/73 Nega tive -?-?-?-?-?-?-?-?-?-?-?-?- Negative 147 26 -?-?-?-?-?-?-?-?-?-?-?-?- JV- no lof, vagi nal bleeding, or cramping. plan for growth scan at 32 weeks for h/o of loss at 20 weeks. GCT ordered 01/07/23 -?-?-?-?-?-?-?-?-?-?-?-?- 25w 6d 205 lb 2 oz 103/73 Trac e -?-?-?-?-?-?-?-?-?-?-?-?- Negative 153 26 -?-?-?-?-?-?-?-?-?-?-?-?- JV- pt presents for decreased movement. bedside scan performed to show patient movement. adequate fluid seen with gross body movement. she has trace ketones in her urine. encouraged to drink more fluid. 01/22/23 -?-?-?-?-?-?-?-?-?-?-?-?- 28w 0d 204 lb 2 oz 96/64 Nega tive -?-?-?-?-?-?-?-?-?-?-?-?- Negative 146 28 -?-?-?-?-?-?-?-?-?-?-?-?- JV- no lof ,vagi nal bleeding, or cramping. + FM. was unable to do glucola due to vomiting. phenergan + pepcid ordered 02/05/23 -?-?-?-?-?-?-?-?-?-?-?-?- 30w 0d 206 lb 4 oz 102/70 Nega tive -?-?-?-?-?-?-?-?-?-?-?-?- Negative 145 30 -?-?-?-?-?-?-?-?-?-?-?-?- KW-No vb/lof/ctx . good fm. unable to do the 3 hour GCT. Opting to do BS monitoring 4 times daily. 02/17/23 -?-?-?-?-?-?-?-?-?-?-?-?- 31w 5d 205 lb 8 oz 108/71 Nega tive -?-?-?-?-?-?-?-?-?-?-?-?- Negative 165 32 -?-?-?-?-?-?-?-?-?-?-?-?- JV- still vomiti ng. has been recording her glucose levels for past 4 days. of the 4 days her fasting levels were 105, 111, 95, and 95. Her 2 hr pp levels are all within target range. Continue recording and if >95 consistently will likely need insulin as will not tolerated metformin. NST FHR Rate Baby A Baseline: 145 Variability:: Moderate Accelerations:: None and 15 x 15 Decelerations:: None NST Reactive:: Yes FHR Category:: Category I Uterine Activity:: no contractions palpated per nursing or seen on monitor Assessment & Plan (1) Supervision of high-risk : COMMENT: , HELEN 04/16/23, BF Jeovanny (2) : QUALIFIERS: Weeks of gestation: 31 weeks Qualified Code(s): Z3A.31 - 31 weeks gestation of COMMENT: discussed NIPT & Carrier testing neg. . normal anatomy (3) Decreased movement: COMMENT: cat 1 tracing reassuring provided. safe for d/c home PLAN: Plan Patient presents for triage evaluation secondary to decreased fm with questionable contractions FHT: Moderate variability reactive no decelerations category I tracing Bagley: no Contractions Assessment and plan: Reactive NST, reassuring maternal and status patient discharged to home to follow-up in office or as needed. See problem list details for additional plan information. Charges/Coding Procedures Urinary/Genital [id number]: 11443-68 non-stress test Interp
[2023-03-01 18:12] VITALS: BP 124/77; PULSE 96
== END 2023-03-01 18:25 | disposition home or self-care (01) ==
LOC: WPOUT 16:57 → WP 16:58
PROVIDERS: Referring Provider Registered Nurse; Visit Provider Registered Nurse
DX: O36.8130 Decreased fetal movements, third trimester, not applicable or unspecified (principal); Z3A.31 31 weeks gestation of pregnancy
CPT/HCPCS: 59025; 59050; 99221; G0378

== ENCOUNTER 2023-03-02 14:15 | Outpatient (CLI) | payer MEDICAID, SELFPAY ==
[2023-03-01 18:12] VITALS: TEMP 36.4
[2023-03-02 14:28] VITALS: BP 134/80; PULSE 117; PULSE 98; TEMP 36.4; O2SAT 97
[2023-03-02 14:30] VITALS: PULSE 214; O2SAT 82
[2023-03-02 14:40] VITALS: BMI 34.8
--- NOTE | 2023-03-02 14:54 | US_ITS ---
STUDY: OBSTETRICAL ULTRASOUND - BIOPHYSICAL PROFILE REASON FOR EXAM: Female, 22 years old decrease movement LMP: 08/07/2022 PRIOR ULTRASOUND: February 19, 2023 TECHNIQUE: Transabdominal TECHNICAL QUALITY: Adequate. FINDINGS: There is a single intrauterine fetus. The fetus is in a cephalic presentation. There is demonstrated cardiac activity with a heart rate of 138 bpm. There is a normal amniotic fluid volume. The largest amniotic fluid pocket measures 5.2 cm. The amniotic fluid index (ANGELIC) is 12.2 cm. The placenta is fundal There are Grade 0 placental changes. Age by LMP: 33 weeks, 4 days. HELEN by LMP: April 16, 2023. Suggest age by current US: 30 weeks, 40 days. HELEN by current US: April 26, 2023. BIOPHYSICAL PROFILE: Breathing Movements (FBM): 2 Gross Body Movements (GBM): 2 Tone (FT): 2 Amniotic Fluid Volume (AFV): 2 TOTAL SCORE: 8 / 8 US/Biophysical Prof W/O Non Stres IMPRESSION: Normal biophysical profile of 8/8. Electronically Signed: Rocky Negron MD at 16:48 EDT ,
--- NOTE | 2023-03-02 15:48 | OB.TRI.PN ---
Progress Notes Date of Service: 03/02/23 Progress Note: Patient presents for triage evaluation secondary to decreased movement FHT: 130 Moderate variability reactive no decelerations category I tracing Tre[place]or: none Contractions Assessment and plan: Reactive NST, BPP 8/8, reassuring maternal and status patient discharged to home to follow-up in office. To get US by [facility] this week. See problem list details for additional plan information. Charges/Coding Multi Select Codes Urinary/Genital Urinary/Genital CPT Codes: 79965-85 non-stress test Interp Assessment & Plan (1) Decreased movement: COMMENT: cat 1 tracing reassuring provided. safe for d/c home (2) Abnormal glucose affecting : COMMENT: Needs 3 hr GTT but unable to keep it down. is recording glucose levels (3) Nausea and vomiting: (4) Marijuana use during : COMMENT: Pt stopped 4 weeks ago, tested positive on new ob labs (5) Prior with demise: COMMENT: 19wks (6) Supervision of high-risk : COMMENT: , HELEN 04/16/23, NICOLE Up (7) : QUALIFIERS: Weeks of gestation: 31 weeks Qualified Code(s): Z3A.31 - 31 weeks gestation of COMMENT: discussed NIPT & Carrier testing neg. . normal anatomy (8) Asthma: (9) Encounter to determine viability of : COMMENT: US rpt 7-10 days
== END 2023-03-02 15:53 | disposition home or self-care (01) ==
LOC: WPOUT 14:18 → WP 14:19
PROVIDERS: Referring Provider Advanced Practice Midwife; Visit Provider Advanced Practice Midwife
DX: O36.8130 Decreased fetal movements, third trimester, not applicable or unspecified (principal); F12.99 Cannabis use, unspecified with unspecified cannabis-induced disorder; O99.810 Abnormal glucose complicating pregnancy; O99.513 Diseases of the respiratory system complicating pregnancy, third trimester; O21.2 Late vomiting of pregnancy; O26.23 Pregnancy care for patient with recurrent pregnancy loss, third trimester; Z3A.31 31 weeks gestation of pregnancy; J45.909 Unspecified asthma, uncomplicated; O99.323 Drug use complicating pregnancy, third trimester
CPT/HCPCS: 59025; 59050; 76819; 99221; G0378

== ENCOUNTER → 2023-03-17 | Outpatient (CLI) | payer MEDICAID, SELFPAY ==
--- NOTE | 2023-03-17 14:52 | US_ITS ---
STUDY: Ultrasound OB Biophysical Profile REASON FOR EXAM: Female, 22 years old well being TECHNIQUE: Transabdominal PRIOR ULTRASOUND: 03/02/2023. FINDINGS: There is a single intrauterine fetus. The fetus is in a cephalic presentation. There is demonstrated cardiac activity with a heart rate of 131 bpm. There is a normal amniotic fluid volume. The amniotic fluid index (ANGELIC) is 8.1 cm. The placenta is posterior and not low-lying. BIOPHYSICAL PROFILE (BPP): 01/05 -- Breathin/2. -- Movement: 2/2. -- Tone: 2/2. --ANGELIC: 2/2. US/Biophysical Prof W/O Non Stres IMPRESSION: Single live intrauterine . Estimated gestational age is 35 weeks and 5 days. Normal BPP. Electronically Signed: Chadwick Sommer MD at 17:43 EDT ,
== END | disposition home or self-care (01) ==
LOC: US 14:51
PROVIDERS: PCP Registered Nurse; Referring Provider Obstetrics & Gynecology; Visit Provider Obstetrics & Gynecology
DX: O09.93 Supervision of high risk pregnancy, unspecified, third trimester (principal); Z3A.00 Weeks of gestation of pregnancy not specified
CPT/HCPCS: 76819

== ENCOUNTER → 2023-03-19 | Outpatient (CLI) | payer MEDICAID, SELFPAY | END | disposition home or self-care (01) | LOC: LABSPEC 16:47 | PROVIDERS: PCP Registered Nurse; Visit Provider Obstetrics & Gynecology | DX: O09.90 Supervision of high risk pregnancy, unspecified, unspecified trimester (principal); Z3A.00 Weeks of gestation of pregnancy not specified | CPT/HCPCS: 87081 ==

== ENCOUNTER → 2023-03-24 | Outpatient (CLI) | payer MEDICAID, SELFPAY ==
--- NOTE | 2023-03-24 14:20 | US_ITS ---
EXAM: US BIOPHYSICAL PROFILE WITHOUT NON-STRESS TESTING CLINICAL INDICATION: well being TECHNIQUE: Real-time ultrasound of the maternal pelvis for biophysical profile evaluation with image documentation. COMPARISON: 03/17/2023. FINDINGS: BREATHING MOVEMENTS: Present. Score 2/2. GROSS BODY MOVEMENTS: Present. Score 2/2. TONE: Present. Score 2/2. QUALITATIVE AMNIOTIC FLUID VOLUME: Amniotic fluid index is 12 cm. Maximum vertical amniotic fluid pocket is 6.3 cm. HEART RATE: heart rate is 153 bpm. PRESENTATION: Cephalic presentation. US/Biophysical Prof W/O Non Stres IMPRESSION: No acute findings. Normal biophysical profile with score of 8/8. Electronically Signed: Bryan Keys MD at 1:48 EDT ,
== END | disposition home or self-care (01) ==
LOC: US 14:19
PROVIDERS: PCP Registered Nurse; Referring Provider Obstetrics & Gynecology; Visit Provider Obstetrics & Gynecology
DX: O09.93 Supervision of high risk pregnancy, unspecified, third trimester (principal); Z3A.00 Weeks of gestation of pregnancy not specified
CPT/HCPCS: 76819

== ENCOUNTER → 2023-03-31 | Outpatient (CLI) | payer MEDICAID, SELFPAY ==
--- NOTE | 2023-03-31 14:23 | US_ITS ---
STUDY: OBSTETRICAL ULTRASOUND - BIOPHYSICAL PROFILE REASON FOR EXAM: Female, 22 years old well being LMP: July 10, 2022. PRIOR ULTRASOUND: Comparison is made with prior study March 24, 2023. TECHNIQUE: Transabdominal TECHNICAL QUALITY: Adequate. FINDINGS: There is a single intrauterine fetus. The fetus is in a cephalic presentation. There is demonstrated cardiac activity with a heart rate of 138 bpm. There is a normal amniotic fluid volume. The largest amniotic fluid pocket measures 4.3 cm x 3.6 cm. The amniotic fluid index (ANGELIC) is 12.8 cm. The placenta is fundal and posterior in location. There are Grade 1 placental changes. Age by LMP: 37 weeks, 5 days. HELEN by LMP: April 16, 2023. age by prior US: 36 weeks, 2 days. HELEN by prior US: April 26, 2023 BIOPHYSICAL PROFILE: Breathing Movements (FBM): 2 Gross Body Movements (GBM): 2 Tone (FT): 2 Amniotic Fluid Volume (AFV): 2 TOTAL SCORE: 8 / 8 US/Biophysical Prof W/O Non Stres IMPRESSION: Normal biophysical profile of 8/8. Electronically Signed: Dio Subramanian MD at 15:33 EDT ,
== END | disposition home or self-care (01) ==
LOC: US 14:22
PROVIDERS: PCP Registered Nurse; Referring Provider Obstetrics & Gynecology; Visit Provider Obstetrics & Gynecology
DX: O09.93 Supervision of high risk pregnancy, unspecified, third trimester (principal); Z3A.00 Weeks of gestation of pregnancy not specified
CPT/HCPCS: 76819

== ENCOUNTER 2023-04-04 18:40 | Inpatient (IN) | payer MEDICAID, SELFPAY ==
[2023-04-04 19:44] VITALS: BP 132/87; PULSE 94; TEMP 37
[2023-04-04 19:45] VITALS: PULSE 102; O2SAT 98
[2023-04-04 20:01] LABS: Absolute Lymphocyte Count 1.64 X10^3/uL (0.83-4.51); Absolute Neutrophil Count 10.1 X10^3/uL (2.0-7.7); Basophil# 0.02 X10^3/uL; Basophil% 0.2 % (0-1); Eosinophil# 0.08 X10^3/uL; Eosinophils% 0.6 % (0-5); Hematocrit 37.9 % (37-47); Hemoglobin 12.6 g/dL (12.0-15.0); Lymphocyte # 1.64 X10^3/ul (0.83-4.51); Lymphocyte % 13.1 % (19-41); Mean Corp Hgb Conc 33.2 g/dL (32-36); Mean Corpuscular Volume 93.1 fL (81-99); Mean Platelet Vol. 10.3 fl (6.2-12.0); Monocyte# 0.57 X10^3/uL; Monocyte% 4.6 % (0-10); NRBC Flagged by Analyzer 0 % (0-5); Neutrophil # 10.11 X10^3/uL (2.7-7.7); Platelet Count 258 K/mm3 (150-450); RBC Distribution Width CV 12.2 % (11.6-14.6); Red Blood Count 4.07 M/mm3 (4.2-5.4); White Blood Count 12.5 K/mm3 (4.4-11.0)
[2023-04-04 20:04] VITALS: BMI 36.4
[2023-04-04 20:12] LABS: Bedside Glucose 92 mg/dL (74-106)
[2023-04-04 20:35] LABS: Syphilis Antibodies Non-reactive
[2023-04-04] MEDS: miSOPROStol 25 MCG TABLET VAGINAL (20:47)
[2023-04-04 21:25] LABS: Bedside Glucose 94 mg/dL (74-106)
[2023-04-04 21:59] LABS: Amphetamine Urine VISTA NEGATIVE (<1000 ng/mL); Barbiturate Urine VISTA NEGATIVE (< 200 ng/mL); Benzodiazepine Urine VISTA NEGATIVE (< 200 ng/mL); Cocaine Urine VISTA NEGATIVE (< 300 ng/mL); Ecstacy Urine VISTA NEGATIVE (< 500 ng/mL); Methadone Urine VISTA NEGATIVE (< 300 ng/mL); PCP Urine VISTA NEGATIVE (< 25 ng/mL); THC Urine VISTA NEGATIVE (< 50 ng/mL); Vista UDS pH Range 6
[2023-04-04 23:10] VITALS: BP 127/71; PULSE 64
[2023-04-05] VITALS (58 sets, daily range): BP systolic 89–138; BP diastolic 52–87; PULSE 57–229; RESP 18; TEMP 36.1–36.5; O2SAT 81–100
[2023-04-05] MEDS: miSOPROStol 25 MCG TABLET VAGINAL ×2 (00:52→04:55)
[2023-04-05 01:16] LABS: Bedside Glucose 75 mg/dL (74-106)
[2023-04-05] MEDS: Ondansetron 4 MG/2 ML Vial IV ×3 (03:10→16:20)
[2023-04-05] MEDS: 0.9% Saline Lock 10 ML Syringe IV ×2 (03:11→07:50)
[2023-04-05 05:19] LABS: Bedside Glucose 84 mg/dL (74-106)
[2023-04-05] MEDS: 0.9% Normal Saline Single 100 ML IV.SOLN. INTRA-UTER (06:50)
--- NOTE | 2023-04-05 07:02 | HP.PCM.OB_ITS ---
HPI - General General Date of Admission: 04/04/23 HPI Tayler VALENZUELA, is a 22 y/o @ 38 weeks 3 days who presented to L&D late last night for induction of labor due to IUGR. The last growth scan on 03/26/23 showed an estimated weight of 2491 grams at the overall 13th% and an abdominal circumference at the 9th%. She has a history of 19 week vaginal delivery for demise. This was complicated by the use of marijuana in the beginning of the and a failed 1 hour gct. She tried but was unable to tolerate the 3 hr gtt and was checking glucose levels 4 times a day for the remainder of her . Maternal Data Information HELEN Calculator Estimated Delivery Date Method Current WG Current Estimate 04/16/23 LMP (Certain) 38w 3d Other Estimates 04/14/23 Ultrasound #2 38w 5d PFSH PFS Medical History (Updated 04/04/23 @ 20:13 by Melanie Olivia) Abnormal glucose affecting MRSA infection Home Medications pediatric multivitamin no.49 (Flintstones Gummies chewable tablet) 2 tab PO QHS 12/12/22 [History Last Taken 04/04/23 08:00 2 tabs] blood sugar diagnostic (Blood Glucose Test strips) #120 ea 02/05/23 [Rx Last Taken Unknown] blood-glucose meter #1 ea 02/05/23 [Rx Last Taken Unknown] lancets #200 ea 02/05/23 [Rx Last Taken Unknown] promethazine 25 mg tablet 25 mg PO TID PRN nausea and vomiting #30 tabs 02/05/23 [Rx Last Taken 03/01/23 22:00 25 mg] ondansetron 4 mg disintegrating tablet 4 mg PO Q6H PRN nausea and vomiting #30 tabs 03/05/23 [Rx Last Taken 04/04/23 08:00 4 mg] Allergy/AdvReac Type Severity Reaction Status Date / Time No Known Allergies Allergy Verified 04/04/23 21:01 Family History Mother Hypertension Grandmother Colon cancer, Onset Age: 55 Paternal Grandmother Breast cancer Maternal Social History adopted: No household members: significant other housing: house current occupational status: employed 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 current occupational exposures/hazards: No (works at [employer]) pets and animals: Yes (dogs, lizard, snakes) pets and animals: dog(s) history of recent travel: No sexually active: Yes Smoking Status: Never smoker Electronic Cigarette Use: not used second hand exposure: Yes (Significant other vapes) counseling given: patient declined alcohol intake: never substance use type: does not use, former substance user Date of last use: Approx 4 weeks, marijuana and other details: used 1 time to see if it would help with hyperemesis well-balanced diet: daily or most days caffeine: Yes Type: carbonated beverages Number of servings: 1 eating out: rarely or never during the past year weight has: remained stable what type of physical activity do you participate in: none adry/anabaptist: None seatbelt use: always do you feel safe at home: Yes additional social history: Boyfriend- Jeovanny History 4 Elective abortions Hx Para 0 Spontaneous abortions 2 Hx # Term Pregnancies Ectopic pregnancies Hx # Pregnancies 1 Multiple births # of living children 0 Past Pregnancies Del. Date Name GA/Weeks Outcome Route Bth Weight Gen Labor Lgth Anesthesia Del Locatn Provider FOB Unknown chemical 11/19 Unknown miscarriage at 17 yo. 06/20/21 Kyle [address] [facility] [address] Lemus Delivery Date: 06/20/21 Last Updated by: Maddie Rubio demise Visit Details Expected Delivery Route/Plan Labor Preferences- CB/BF classes: [] labor support person: [] labor intervention preferences: [] pain management options preferred: [] cut cord/dad catch: [] : [] PP control planned: [] discussed possible routes of delivery and associated risks: [] special requests: [] Plans Covid status: declined Flu vaccine: declined Tdap vaccine: declined Rhogam: na LARC form signed: declined movement and labor precautions reviewed. Problem list reviewed and updated with the most current plan of care details and appropriate orders placed. Relevant counseling for the gestational age provided. Continue routine care and follow up unless otherwise noted in visit notes/problem list details OB Flowsheet Initial Weight: Not Recorded Date -?-?-?-?-?-?-?-?-?-?-?-?- EGA Weight BP Urine Prot -?-?-?-?-?-?-?-?-?-?-?-?- Glucose FHR FuHt Pres Dilation -?-?-?-?-?-?-?-?-?-?-?-?- Effaced St Visit Note 09/16/22 -?-?-?-?-?-?-?-?-?-?-?-?- 9w 5d 221 lb 6 oz 131/74 -?-?-?-?-?-?-?-?-?-?-?-?- 180 -?-?-?-?-?-?-?-?-?-?-?-?- JV- CRL consiste nt w lmp, c/o vomiting x 3 days and not holding down fluids. will send to infusion center and start optum consult. desires nipt 10/12/22 -?-?-?-?-?-?-?-?-?-?-?-?- 13w 3d 208 lb 4 oz 124/80 1+ -?-?-?-?-?-?-?-?-?-?-?-?- Negative 150 -?-?-?-?-?-?-?-?-?-?-?-?- LC-bedside ultra sound demonstrating +FHR 150s. discussed afp. unsure. LC-bedside ultrasound demons trating +FHR 150s. discussed afp. unsure. vomiting 4-20x/day. cost prohibiting optimum at this time. will be calling medicaid as pt has dropped to 8 hours of work/week. able to drink water today, declines IV hydration. LC-bedside ultrasound demons trating +FHR 150s. discussed afp. unsure. vomiting 4-20x/day. today is feeling well.optimum is cost prohibiting at this time. will be calling medicaid as pt has dropped to 8 hours of work/week. able to drink water today, declines IV hydration. discussed when to call for rehydration 10/19/22 -?-?-?-?-?-?-?-?-?-?-?-?- 14w 3d 213 lb 4 oz 120/73 Trac e -?-?-?-?-?-?-?-?-?-?-?-?- Negative 150 -?-?-?-?-?-?-?-?-?-?-?-?- LC- bedside ultr asound to confirm FHR. was having cramping over the weekend, none today after hydrating. denies vb 11/04/22 -?-?-?-?-?-?-?-?-?-?-?-?- 16w 5d 207 lb 105/67 Negative -?-?-?-?-?-?-?-?-?-?-?-?- Negative 154 -?-?-?-?-?-?-?-?-?-?-?-?- kw- +FM, no cram ping/vb. US ordered. Discussed AFP- declines. 12/04/22 -?-?-?-?-?-?-?-?-?-?-?-?- 21w 0d 201 lb 6 oz 108/74 Trac e -?-?-?-?-?-?-?-?-?-?-?-?- Negative 145 21 -?--?-?-?-?-?-?-?-?-?-?-?- KW- +FM. no vb/l of/ctx. no concerns today 01/01/23 -?-?-?-?-?-?-?-?-?-?-?-?- 25w 0d 204 lb 8 oz 119/73 Nega tive -?-?-?-?-?-?-?-?-?-?-?-?- Negative 147 26 -?-?-?-?-?-?-?-?-?-?-?-?- JV- no lof, vagi nal bleeding, or cramping. plan for growth scan at 32 weeks for h/o of loss at 20 weeks. GCT ordered 01/07/23 -?-?-?-?-?-?-?-?-?-?-?-?- 25w 6d 205 lb 2 oz 103/73 Trac e -?-?-?-?-?-?-?-?-?-?-?-?- Negative 153 26 -?-?-?-?-?-?-?-?-?-?-?-?- JV- pt presents for decreased movement. bedside scan performed to show patient movement. adequate fluid seen with gross body movement. she has trace ketones in her urine. encouraged to drink more fluid. 01/22/23 -?-?-?-?-?-?-?-?-?-?-?-?- 28w 0d 204 lb 2 oz 96/64 Nega tive -?-?-?-?-?-?-?-?-?-?-?-?- Negative 146 28 -?-?-?-?-?-?-?-?-?-?-?-?- JV- no lof ,vagi nal bleeding, or cramping. + FM. was unable to do glucola due to vomiting. phenergan + pepcid ordered 02/05/23 -?-?-?-?-?-?-?-?-?-?-?-?- 30w 0d 206 lb 4 oz 102/70 Nega tive -?-?-?-?-?-?-?-?-?-?-?-?- Negative 145 30 -?-?-?-?-?-?-?-?-?-?-?-?- KW-No vb/lof/ctx . good fm. unable to do the 3 hour GCT. Opting to do BS monitoring 4 times daily. 02/17/23 -?-?-?-?-?-?-?-?-?-?-?-?- 31w 5d 205 lb 8 oz 108/71 Nega tive -?-?-?-?-?-?-?-?-?-?-?-?- Negative 165 32 -?-?-?-?-?-?-?-?-?-?-?-?- JV- still vomiti ng. has been recording her glucose levels for past 4 days. of the 4 days her fasting levels were 105, 111, 95, and 95. Her 2 hr pp levels are all within target range. Continue recording and if >95 consistently will likely need insulin as will not tolerated metformin. 03/03/23 -?-?-?-?-?-?--?-?-?-?-?-?- 33w 5d 202 lb 4 oz 118/82 Nega tive -?-?-?-?-?-?-?-?-?-?-?-?- Negative 138 33 0 -?-?-?-?-?-?-?-?-?-?-?-?- MH-Good FM. [place] pres[place] spotting this AM. Exam nl without any blood in vagina and CX closed. FBS consistently >95. 2 hr glucose nl. Ref Dr Quan. Growth US next week 03/05/23 -?-?-?-?-?-?-?-?-?-?-?-?- 34w 0d 205 lb 8 oz 122/80 Nega tive -?-?-?-?-?-?-?-?-?-?-?-?- Negative 130 -?-?-?-?-?-?-?-?-?-?-?-?- LC- reactive nst for IUGR and diabetes. seeing endo this week. elevated FG 90s-low 100s. cont with hyperemesis. refill for [place] sent. 03/12/23 -?-?-?-?-?-?-?-?-?-?-?-?- 35w 0d 206 lb 4 oz 122/74 Trac e -?-?-?-?-?-?-?-?-?-?-?-?- Negative 130 -?-?-?-?-?-?-?-?-?-?-?-?- SM- no vb lof go od fm no regular ctx discussed IUGR diagnosis and plan 03/19/23 -?--?-?-?-?-?-?-?-?-?-?-?- 36w 0d 206 lb 6 oz 116/79 Nega tive -?-?-?-?-?-?-?-?-?-?-?-?- Negative 130 35 0 -?-?-?-?-?-?-?-?-?-?-?-?- JV- NST reactive , glucose levels are highest 97. has growth and bpp next week to determine delivery timing. 03/26/23 -?-?-?-?-?-?-?-?-?-?-?-?- 37w 0d 208 lb 122/84 Negative -?-?-?-?-?-?-?-?-?-?-?-?- Negative 140 35 0 -?-?-?-?-?-?-?-?-?-?-?-?- JV- no lof, vagi nal bleeding, or dec fm. growth still <1 at ac. IOL set for 38 weeks 2 days, wants doc only for delivery if possible 04/02/23 -?-?-?-?-?-?-?-?-?-?-?-?- 38w 0d 209 lb 4 oz 107/73 Nega tive -?-?-?-?-?-?-?-?-?-?-?-?- Negative 150 34 0.5 -?-?-?-?-?-?-?-?-?-?-?-?- JV- no lof, vagi nal bleeding, or dec fm. nst reactive. plan for wednesday night IOL. ROS Constitutional Constitutional: Denies change in weight, fatigue, fever(s), headache(s), poor appetite or weakness Eyes Eyes: Denies blurry vision, change in vision, seeing flashes or spots in vision ENT HEENT: Denies dizziness, headache(s), loss taste/smell or sore throat Cardiovascular Cardiovascular: Denies chest pain, dizziness, dyspnea, irregular heart rhythm, leg edema, palpitations, rapid heart rate or vomiting Respiratory/Chest Respiratory/Chest: Denies chest tightness, cough, dyspnea or breast pain Gastrointestinal Gastrointestinal: Denies abdominal pain, anorexia, constipation, cramping, diarrhea, hemorrhoids, vomiting or weight changes Genitourinary Genitourinary: Denies dysuria, flank pain, genital lesions, genital pain, urinary frequency or urinary urgency Musculoskeletal Musculoskeletal: Denies back pain, difficulty walking, joint pain, limited range of motion, muscle cramps or numbness Integumentary Integumentary: Denies lesions or unusual bruising Neurologic Neurologic: Denies abnormal movements, abnormal speech, dizziness, numbness, seizure-like activity or syncope Psychiatric Psychiatric: Denies anxiety, behavioral changes, change in appetite, change in libido, cognitive impairment, confusion, depression, difficulty concentrating, hallucinations or suicidal thoughts Endocrine Endocrinology: Denies excessive sweating, polydipsia or polyuria Hematologic/Lymphatic Hematologic/Lymphatic: Denies easy bleeding, easy bruising or lymphadenopathy Allergic/Immunologic Allergic/Immunologic: Denies itchy eyes, lip swelling, seasonal rhinorrhea, rhinitis, throat swelling, tongue swelling, eczemia, wheezing or asthma Vital Signs Vital Signs Vital Signs: 04/04/23 19:44 04/04/23 19:44 04/04/23 19:45 Temperature Temperature Source Pulse Rate 94 102 H Blood Pressure 132/87 H BP Systolic 132 BP Diastolic 87 Pulse Ox 04/04/23 19:45 04/04/23 19:44 04/04/23 19:44 Temperature 98.6 F Temperature Source Tympanic Pulse Rate Blood Pressure BP Systolic BP Diastolic Pulse Ox 98 04/04/23 23:10 04/04/23 23:10 04/05/23 03:03 Temperature Temperature Source Pulse Rate 64 Blood Pressure 127/71 H 112/66 BP Systolic 127 112 BP Diastolic 71 66 Pulse Ox 04/05/23 03:03 04/05/23 03:03 04/05/23 03:03 Temperature 97.1 F L Temperature Source Temporal Pulse Rate 80 Blood Pressure BP Systolic BP Diastolic Pulse Ox Weight Weight: 212 lb 4.882 oz Body Mass Index (BMI) 36.4 Physical Exam Const alert, oriented x3, no apparent distress and healthy appearing General Appearance: cooperative; Negative for anxious HEENT normocephalic Face and Sinus: normal facial exam Eyes EOMs intact bilaterally and no scleral icterus General Eye: normal appearance of both eyes Neck full ROM and supple Lymph Lymphatic: no lymphadenopathy noted Chest Chest: abnormal inspection of the chest Resp normal respiratory effort Effort and Inspection: able to speak in complete sentences Cardio regular rate GI soft to palpation and non-tender Inspection: gravid Palpation: soft; Negative for tender external exam normal Amniotic Fluid: ROM+plus Back/Spine no CVA tenderness Extremity normal to inspection, full ROM and no clubbing, cyanosis or edema General Extremity: Negative for calf tenderness or edema Skin Lesions: no lesions Rashes: no rashes Psych mental status grossly normal Labs Labs Labs: Blood Type AB POSITIVE Antibody Screen NEGATIVE Hct 37.9 % (37-47) Hgb 12.6 g/dL (12.0-15.0) Obstetrics Ultrasound Syphilis Total Ab Non-reactive Rubella IgG Antibody Reactive (Nonreactive) Hep Bs Antigen Non-Reactive (Nonreactive) Hepatitis C Antibody Non-Reactive (Nonreactive) Chlamydia DNA ([facility]) Negative (Negative) N.gonorrhoeae DNA ([facility]) Negative (Negative) HIV 1&2 Antibody Non-Reactive (Nonreactive) Glucose 1 Hr 50 gm 155 mg/dL (70-140) H Rhogam given: No Miscellaneous Test Assessment & Plan (1) IUGR (intrauterine growth restriction) affecting care of mother: COMMENT: 12% overall 1792g on 03/05 <1% AC, plan weekly bpp and UAD with MFM and weekly nsts with [facility], deliver at 38-39. (2) Gestational diabetes mellitus (GDM): QUALIFIERS: Gestational diabetes mellitus control: unspecified Trimester: third trimester Qualified Code(s): O24.419 - Gestational diabetes mellitus in , unspecified control COMMENT: FBS consistently >95. Ref Dr Quan. Growth 02/06. NST twice weekly. (3) Marijuana use during : COMMENT: Pt stopped 4 weeks ago, tested positive on new ob labs (4) Prior with demise: COMMENT: 19wks (5) Supervision of high-risk : QUALIFIERS: Trimester: third trimester Qualified Code(s): O09.93 - Supervision of high risk , unspecified, third trimester COMMENT: [id number], HELEN 04/16/23, girl [place] DOYLE Wright (apr) NICOLE Up (6) : QUALIFIERS: Weeks of gestation: 38 weeks Qualified Code(s): Z3A.38 - 38 weeks gestation of COMMENT: Neg GBS discussed NIPT & Carrier testing neg. . normal anatomy (7) Asthma: (8) Parvovirus exposure: COMMENT: pt had loss at 20 week and only result that was positive was parvovirus B-19 IgG. it is inconclusive if this was the cause the IgG can sh ow up days after the IgM (acute reaction) and last years. Anora test and autopsy did not show abnormalities. (9) Abnormal glucose affecting : COMMENT: Needs 3 hr GTT but unable to keep it down. is recording glucose levels PLAN: Plan Patient presents IOL, plan management for with cytotec (started last night) and now woodward bulb placement and pitocin/arom as needed. . Pain management: plans epidural. GBS negative. Management of any complications: continue q 4 hr glucose levels until active labor. I have reviewed the [facility] and made any clinically relevant updates.
--- NOTE | 2023-04-05 07:09 | PN_ITS ---
Progress Note patient consents to a woodward bulb placement this am. She states that she did not get much rest last night and will likely want her epidural soon. current tracing: FHT: Moderate variability reactive no decelerations category I tracing [place]: q2-3 min Contractions cx: 1.5/80/-1 and midposition., somewhat still firm. Woodward placed in the cervix and inflated with 50cc nc. dark maroon blood returned and the woodward was flushed. The bleeding slowed to a slow trickle then stopped. reviewed tracing abnormalities since last note: no changes A/P: plan to start pitocin as needed epidural prn plan arom when woodward is out. close monitoring of bleeding in meantime.
[2023-04-05] MEDS: LACTATED RINGERS 500 ML 999 ML IV (07:57)
[2023-04-05] MEDS: Lactated Ringers 1,000 ML 200 ML IV ×2 (07:57→12:50)
[2023-04-05] MEDS: fentaNYL-bupivacaine (epidural) 100 ML BAG EPIDURAL ×2 (08:39→13:20)
[2023-04-05] MEDS: Oxytocin 15 Units/NS 250ml 15 UNITS/250 ML IV.SOLN 2 UNITS IV (09:49)
--- NOTE | 2023-04-05 13:23 | PCM.PN.BLA ---
Progress Note pt is now comfortable with epidural. She consents to AROM current tracing: FHT: Moderate variability reactive no decelerations category I tracing [place]: not really picking up Contractions cx: 4.5/80/0 membranes ruptured. scant fluid return. IUPC placed without difficulty reviewed tracing abnormalities since last note: no overall change A/P: continue pitocin and expectant managemnt
--- NOTE | 2023-04-05 17:28 | EX.PCM.OBRPT ---
Assessment & Plan (1) IUGR (intrauterine growth restriction) affecting care of mother: COMMENT: 12% overall 1792g on 03/05 <1% AC, plan weekly bpp and UAD with MFM and weekly nsts with [facility], deliver at 38-39. (2) Gestational diabetes mellitus (GDM): QUALIFIERS: Gestational diabetes mellitus control: unspecified Trimester: third trimester Qualified Code(s): O24.419 - Gestational diabetes mellitus in , unspecified control COMMENT: FBS consistently >95. Ref Dr Quan. Growth US 02/06. NST twice weekly. (3) Marijuana use during : COMMENT: Pt stopped 4 weeks ago, tested positive on new ob labs (4) Prior with demise: COMMENT: 19wks (5) Supervision of high-risk : QUALIFIERS: Trimester: third trimester Qualified Code(s): O09.93 - Supervision of high risk , unspecified, third trimester COMMENT: [id number], HELEN 04/16/23, girl [place] DOYLE Wright (apr) NICOLE Up (6) : QUALIFIERS: Weeks of gestation: 38 weeks Qualified Code(s): Z3A.38 - 38 weeks gestation of COMMENT: Neg GBS discussed NIPT & Carrier testing neg. . normal anatomy (7) Asthma: (8) Parvovirus exposure: COMMENT: pt had loss at 20 week and only result that was positive was parvovirus B-19 IgG. it is inconclusive if this was the cause the IgG can show up days after the IgM (acute reaction) and last years. Anora test and autopsy did not show abnormalities. (9) Abnormal glucose affecting : COMMENT: Needs 3 hr GTT but unable to keep it down. is recording glucose levels Maternal Data Information HELEN Calculator Estimated Delivery Date Method Current WG Current Estimate 04/16/23 LMP (Certain) 38w 3d Other Estimates 04/14/23 Ultrasound #2 38w 5d Final HELEN Source: LMP Gestational age: 38 weeks 3 days Vaginal Delivery Maternal Presentation Maternal Presentation: Medically Indicated Induction Type of Induction: Pitocin, Mcbride Bulb, Amniotomy and Cytotec Medical Reason for Induction: - (iugr ) Operative Information Date of Procedure: 04/05/23 Pre-Operative Diagnosis: 22 y/o @ 38 weeks 3 days, IUGR Post-Operative Diagnosis: 22 y/o @ 38 weeks 3 days, IUGR Type of Anesthesia: Epidural Estimated Blood Loss: 100cc Time of Delivery: 17:05 Findings Description of Procedure: Patient began pushing and delivered the head in the ELEONORA presentation. The head was delivered atraumatically and a loose nuchal cord ?1 was identified and easily reduced over the 's head. The anterior and posterior shoulders delivered without complication followed by the rest of the and the infant was placed on the maternal abdomen. Delayed cord clamping was employed for approximately 60 seconds. Cord was clamped and cut and gentle traction was applied to the cord and the placenta delivered spontaneously immediately following it was noted to be intact with three-vessel cord. The perineum and vagina were inspected and noted to have a 1st degree perineal laceration. This was repaired using a 3-0 vicryl suture. EBL was 100 cc. Patient and tolerated delivery well. Presentation: Vertex Time of Membrane Rupture: 12:30 Amniotic Fluid Description: Clear Placenta Disposition: [facility] Cord Vessel Description: 3 Vessels Cord Entanglement: Around neck x 1, loose Nuchal Cord Compression: Without compression A Gender: Female (1 minute): 8 (5 minute): 9 Delayed Cord Clamping: No Post Vaginal Delivery Medications Given After Delivery: IV Pitocin Episiotomy Description: None Laceration: 1st degree Complication Complications: None Multi Select Codes Urinary/Genital Urinary/Genital CPT Codes: 64168 Vaginal Delivery [facility]
--- NOTE | 2023-04-05 17:33 | DCINST_ITS ---
Discharge Instructions Diet Discharge Diet: No restrictions Activity Discharge Activity: Return to Normal Activity, May Not Drive (while taking narcotic pain medications.) and May Shower May resume sexual activity in: 4-6 weeks Dressing / Incision Call your doctor if your incision/area has: Continuous Slow Oozing, Sudden Increased Bleeding, Increased Pain/ Swelling, Increased Redness and Foul Smelling Discharge Follow Up Care Please Follow Up With: Cammie Lemus, When: Call [phone] to make an appointment with your doctor in 6 weeks. If you had elevated blood pressure or 4th degree laceration, you will need to be seen in 2 weeks. Test Results: Test results from this visit will be discussed in further detail at your follow- up appointment, if applicable. Discharge Plan Admission Admit Date/Time: 04/04/23 18:40 Attending Provider: Cammie Lemus Primary Care Provider: Beatriz Lewis NP Discharge Orders/Prescriptions Prescriptions: No Action promethazine 25 mg tablet 25 mg PO TID PRN (Reason: nausea and vomiting) Qty: 30 3RF (DME) blood-glucose meter Misc See Rx Instructions .MEDSUPPLY Qty: 1 0RF Rx Instructions: As directed- Test fasting and 2 hours after meals (DME) lancets Misc See Rx Instructions .MEDSUPPLY Qty: 200 4RF Rx Instructions: As directed (DME) Blood Glucose Test Strip See Rx Instructions .Route Qty: 120 4RF Rx Instructions: As directed-fasting & 2 hr post meals ondansetron 4 mg tablet,disintegrating 4 mg PO Q6H PRN (Reason: nausea and vomiting) Qty: 30 5RF Flintstones Gummies Tablet,Chewable 2 tab PO QHS Referrals / Follow Up: Beatriz Lewis NP, DEPARTMENTAL SECRETARY-C [Primary Care Provider] -
[2023-04-05] MEDS: Oxytocin 15 Units/NS 250ml 15 UNITS/250 ML IV.SOLN 83 UNITS IV (17:41)
--- NOTE | 2023-04-05 20:52 | NURSING ---
Epidural cetheter removed by this RN, blue tip intact.
[2023-04-06] VITALS (7 sets, daily range): BP systolic 121–149; BP diastolic 66–81; PULSE 74–94; RESP 16–18; TEMP 36.4–36.6; O2SAT 96–98
[2023-04-06] MEDS: Ibuprofen 600 MG Tablet PO (05:24)
[2023-04-06] MEDS: Acetaminophen 500 MG Tablet 1000 MG PO (05:25)
--- NOTE | 2023-04-06 07:24 | PN.OBGYN_ITS ---
Subjective Subjective Patient doing well without complaints. Tolerating PO. Ambulating and voiding without difficulty. Feeding well. Denies chest pain, shortness of breath, calf pain/swelling, fevers, chills, lightheadedness. Objective Data Objective Data Vital Signs: Vital Signs Temp Pulse Resp BP Pulse Ox O2 Del Method 97.6 F L 74 18 121/66 H 98 Room Air 04/06/23 03:18 04/06/23 03:18 04/06/23 03:18 04/06/23 03:18 04/06/23 03:18 04/06/23 03:18 Oxygen Delivery Method Room Air Weight: 212 lb 4.882 oz Body Mass Index (BMI) 36.4 Intake & Output: Intake and Output for Last 24 Hours 04/04/23 04/05/23 04/06/23 23:59 23:59 23:59 Intake Total 2820.43 / 2820.43 Output Total 2100 / 2100 700 / 700 Balance 720.43 / 720.43 -700 / -700 Lab / Micro Data Attestation: I reviewed the patient's lab results. 04/04/23 19:45 ROS Constitutional Constitutional: Reports systems reviewed and no addt'l complaints, except as documented; Denies anorexia or headache(s) Cardiovascular Cardiovascular: Reports systems reviewed and no addt'l complaints, except as documented; Denies dizziness, dyspnea, nausea or tachypnea Respiratory/Chest Respiratory/Chest: Reports systems reviewed and no addt'l complaints, except as documented; Denies cough, dyspnea, shortness of breath at rest or tachypnea Gastrointestinal Gastrointestinal: Reports systems reviewed and no addt'l complaints, except as documented; Denies abdominal pain, constipation or nausea Genitourinary Genitourinary: Reports systems reviewed and no addt'l complaints, except as documented; Denies burning urination, difficulty urinating, dysuria, urinary frequency or urinary incontinence Musculoskeletal Musculoskeletal: Reports systems reviewed and no addt'l complaints, except as documented Integumentary Integumentary: Reports systems reviewed and no addt'l complaints, except as documented Neurologic Neurologic: Reports systems reviewed and no addt'l complaints, except as documented; Denies abnormal speech, dizziness or headache(s) Psychiatric Psychiatric: Reports systems reviewed and no addt'l complaints, except as documented Endocrine Endocrinology: Reports systems reviewed and no addt'l complaints, except as documented Hematologic/Lymphatic Hematologic/Lymphatic: Reports systems reviewed and no addt'l complaints, except as documented Physical Exam Const alert, oriented x3 and no apparent distress Neck full ROM Resp normal respiratory effort, normal air movement and no retractions Effort and Inspection: able to speak in complete sentences and symmetric chest movement GI soft to palpation Bladder / Kidney Exam: bladder normal to palpation Uterus Palpation: uterus fundus firm Extremity normal to inspection and full ROM Psych mental status grossly normal, thought process normal and cooperative Assessment & Plan (1) IUGR (intrauterine growth restriction) affecting care of mother: COMMENT: 12% overall 1792g on 03/05 <1% AC, plan weekly bpp and UAD with MFM and weekly nsts with [facility], deliver at 38-39. PLAN: s/p PPD # 1 1. routine post delivery care 2. breast feeding- support given 3. rh positive 4. rubella immune 5. discharge home (2) Gestational diabetes mellitus (GDM): QUALIFIERS: Gestational diabetes mellitus control: unspecified Trimester: third trimester Qualified Code(s): O24.419 - Gestational diabetes me llitus in , unspecified control COMMENT: FBS consistently >95. Ref Dr Quan. Growth US 02/06. NST twice weekly. (3) Supervision of high-risk : QUALIFIERS: Trimester: third trimester Qualified Code(s): O09.93 - Supervision of high risk , unspecified, third trimester COMMENT: [id number], HELEN 04/16/23, girl [place] DOYLE Wright (apr) BF Jeovanny (4) Abnormal glucose affecting : COMMENT: Needs 3 hr GTT but unable to keep it down. is recording glucose levels Charges/Coding Multi Select Codes Urinary/Genital Urinary/Genital CPT Codes: No Charge
--- NOTE | 2023-04-06 14:47 | CASEMGMT ---
Social Work Assessment Labor and Delivery Unit Patient Address: [address] [place] [address] Phone number: [phone] Date of Referral: 04/06/23 Time of Referral: 404 Referred By: Cammie Lemus Date of Intervention: 04/06/23 Time of Intervention: 1400 Reason for Referral: THC in early Sw completed chart review and acknowledges social work consult due to maternal THC use early in . Sw presented to bedside and introduced self to mother of baby (MOB- Simi) and father of baby (FOB- Romanmoy). Sw explained reason for sw involvement and completed psychosocial assessment. Sw provided support and literature for parents to review regarding depression/ anxiety and baby blues. History obtained from: medical records and mother of baby (MOB) and FOB. Household composition: SOCORRO states that currently residing in the home is herself, FOB, two roommates, one of the roommates girlfriends and now baby girl. Patient's parent/guardian status: SOCORRO states that she and FOJeison met four years ago in a bar. They are unmarried, but co-habitate together. No concerns at this time regarding domestic violence or intimate partner violence. Medical History: SOCORRO is 22 year old, single, female who is 4, para 0- 1. after delivering baby girl. The first baby that SOCORRO delivered was a still born Educational Status: Financial Status: Supplies: Childcare/Caregiver(s): Transportation: Programs/Agencies Involved: Children Services/Legal Issues: Behavioral Health Issues: Mental Health History: Substance Use History: Family History: Drug Screens Family/Social Stressors: Support Systems: Depression/Shaken Baby/Safe Sleeping: ASSESSMENT: Safe Plan of Care for infant related to substance use:
--- NOTE | 2023-04-06 15:00 | CASEMGMT ---
Social Work Assessment Labor and Delivery Unit Patient Address:[address] [place] [address] Phone number: [phone] Date of Referral: 04/06/23 Time of Referral: 404 Referred By:Cammie Lemus Date of Intervention: 04/06/23 Time of Intervention: 1400 Reason for Referral: THC use in early Sw completed chart review and acknowledges social work consult due to maternal THC use in . Sw presented to bedside and introduced self to mother of baby (SOCORRO- Simi) and father of baby (FOJeison- Earlenejaved). Sw explained reason for sw involvement and completed psychosocial assessment. Sw provided support, education and literature for parents regarding signs and symptoms of baby blues and anxiety/depression. History obtained from: medical records and mother of baby (SOCORRO) and FOJeison. Household composition:Currently residing in the home is SOCORRO, BYRON, two roommates and a roommate's girlfriend and now baby girl. Patient's parent/guardian status: Parents have been together for 4 years, they met a bar, but had known each other prior to meeting in person. No concerns at this time regarding domestic violence and intimate partner violence. Medical History: SOCORRO is 22 year old, single, female who is 4, para 0-now 1 after delivery of baby. SOCORRO did have a still of a baby boy (Kyle) in May of 2021 at 19 weeks gestation. SOCORRO received routine care during with Joy. SOCORRO delivered baby girl via vaginal delivery at 38 weeks gestation. Baby girl, named Melba, was born weighing 6lb 4oz and her apgars were 8 and 9 at one and five minutes of life respectfully. SOCORRO states that she is feeding baby with formula at this time, but is working on pumping to be able to provide breast milk. Baby will be followed by Dr. Smith for pediatrics. Educational Status: Both parents graduated from high school. BYRON states that he did attend some college but did not graduate. No concerns regarding reading, learning or comprehension. Financial Status: Both parents are gainfully employed outside of the home. BYRON works at [employer] in [place], he is able to take off 2 weeks of paternity leave. SOCORRO works at [employer] and does direct care. SOCORRO is able to take maternity leave. Supplies: MOB states that she has obtained all necessary baby supplies for baby including: car seat, safe sleep space, clothes, diapers, wipes and breast pump. Childcare/Caregiver(s):MOB states that when both parents are working they will have a evening sitter arranged. Transportation: Both parents have their drivers license and reliable means of transportation. No transportation barriers at this time. Programs/Agencies Involved: MOB is connected to services provided through [employer] [facility] including insurance (Medicaid/ Amerihealth). MOB is also connected to [place]. Sw informed MOB that she needs to contact WIC and inform them that baby has been born. Sw also encouraged MOB to talk to [facility] and get baby added to insurance plan, and also see if having a new dependent will qualify MOB for food stamps. Children Services/Legal Issues: No history of Children Services involvement, no issues or concerns requiring Children Services referral at this time. Behavioral Health Issues: Mental Health History:FOB denies mental health history/ diagnoses. MOB states that she did experience some depression following the delivery and loss of her 19 week gestation baby. MOB states that she is able to recognize signs and symptoms of baby blues and depression. MOB stated that she was prescribed zoloft previously but she felt as though it made her symptoms worse, so she stopped taking it. Substance Use History: MOB states that she smoked marijuana prior to , however she stopped at 4 weeks gestation when she found out that she was . MOB had positive THC urine screen at her initial appointment. Family History: MOB denies family history of addiction or mental health history. Drug Screens: Maternal urine screen at time of delivery was negative for all substances. Family/Social Stressors: Parents deny any concerns or stressors at this time. Support Systems: Parents state that they have a lot of natural support found in their mothers. MOB states that FOB is one of her biggest supports. Depression/Shaken Baby/Safe Sleeping: Sw educated parents on signs and symptoms of baby blues and depression and anxiety. Sw gave parents literature to review that included appropriate coping skills to utilize if MOB should struggle. Sw educated parents on shaken baby prevention, ABCs of safe sleep and Help Me Grow. Parents expressed understanding. ASSESSMENT: MOB and baby admitted following labor and delivery. MOB talkative and receptive to sw involvement and support. MOB with history of 19 week gestation loss and became tearful when discussing that loss. MOB states that she has a lot of natural supports in place and familiar with signs and symptoms to be on the look out for regarding baby blues and depression/ anxiety. No further needs or concerns at this time. Smiley Bell, PHOTO LAB TECHNICIAN, TRANSIT WORKER
== END 2023-04-06 17:40 | disposition home or self-care (01) | DRG 560 ==
PROVIDERS: Advanced Practice Midwife; Admitting Provider Obstetrics & Gynecology; PCP Registered Nurse; Visit Provider Obstetrics & Gynecology
DX: O36.5930 Maternal care for other known or suspected poor fetal growth, third trimester, not applicable or unspecified (principal); Z37.0 Single live birth; O99.324 Drug use complicating childbirth; J45.909 Unspecified asthma, uncomplicated; F12.90 Cannabis use, unspecified, uncomplicated; O24.429 Gestational diabetes mellitus in childbirth, unspecified control; O99.52 Diseases of the respiratory system complicating childbirth; O70.0 First degree perineal laceration during delivery; Z3A.38 38 weeks gestation of pregnancy; O69.81X0 Labor and delivery complicated by cord around neck, without compression, not applicable or unspecified; Z20.828 Contact with and (suspected) exposure to other viral communicable diseases
CPT/HCPCS: 59025; 59050; 80307; 82962; 85025; 86780; 86850; 86900; 86901; 99221; J7120; A4216; G0378; J2405

== ENCOUNTER → 2023-05-19 | Outpatient (CLI) | payer MEDICAID, SELFPAY | END | disposition home or self-care (01) | PROVIDERS: Visit Provider Obstetrics & Gynecology | DX: N89.8 Other specified noninflammatory disorders of vagina (principal) | CPT/HCPCS: 87070; 87186; 87205 ==

== ENCOUNTER → 2025-05-08 | Outpatient (CLI) | payer MEDICAID, SELFPAY ==
[2025-05-11 05:07] LABS: Chlamydia By Nucleic Acid AMP Negative (Negative); Gonococcus By Nucleic Acid AMP Negative (Negative)
== END | disposition home or self-care (01) ==
LOC: LABSPEC 16:10
PROVIDERS: Visit Provider Nurse Practitioner Women's Health
DX: N89.8 Other specified noninflammatory disorders of vagina (principal)
CPT/HCPCS: 87070; 87205; 87491; 87591